=== PATIENT | female | born 1975 | race Caucasian/White ===

== ENCOUNTER → 2017-07-13 | Outpatient (CLI) | payer OTHER ==
[~2017-07-13] MED LIST: LEVO125T4 PO; PRENTAB26 PO; ZVRUNK
== END | disposition home or self-care (01) ==
LOC: C.LABSPEC 17:49
PROVIDERS: ATTEND Physician Assistant
DX: N76.2 Acute vulvitis (principal)

== ENCOUNTER → 2017-08-05 | Outpatient (CLI) | payer OTHER | END | disposition home or self-care (01) | LOC: C.LABBFT 08:00 | PROVIDERS: ATTEND Internal Medicine Endocrinology, Diabetes & Metabolism | DX: E03.9 Hypothyroidism, unspecified (principal) ==

== ENCOUNTER → 2017-08-08 | Outpatient (CLI) | payer OTHER | END | disposition home or self-care (01) | LOC: C.PAPS 10:34 | PROVIDERS: ATTEND Physician Assistant | DX: Z12.4 Encounter for screening for malignant neoplasm of cervix (principal) ==

== ENCOUNTER → 2017-10-07 | Outpatient (CLI) | payer OTHER ==
[~2017-10-07] MED LIST changes: -LEVO125T4 PO; +LEVO125T5 PO
[2017-10-07 12:40] LABS: THYROID STIMULATING HORMONE 0.821 uIu/ml (0.300-4.500)
== END | disposition home or self-care (01) ==
LOC: C.LABBFT 08:46
PROVIDERS: ATTEND Internal Medicine Endocrinology, Diabetes & Metabolism
DX: E03.9 Hypothyroidism, unspecified (principal)

== ENCOUNTER → 2018-02-10 | Outpatient (CLI) | payer OTHER, BC | END | disposition home or self-care (01) | LOC: C.LABBFT 08:32 | PROVIDERS: ATTEND Internal Medicine Endocrinology, Diabetes & Metabolism | DX: E03.9 Hypothyroidism, unspecified (principal) ==

== ENCOUNTER 2023-07-29 09:09 | Observation (INO) ==
--- NOTE | 2023-06-20 16:21 | PAT Medication Instructions ---
Medication Instructions Date of Service June 20, 2023 Home Medications Medication Instructions Recorded albuterol sulfate 90 mcg/actuation 2 puff inhalation QID PRN 04/08/21 aerosol inhaler (ProAir HFA) shortness of breath #8.5 grams citalopram 40 mg tablet 40 mg PO QAM 90 days #90 tabs 12/23/22 bupropion HCl 150 mg 24 hr tablet, 150 mg PO QAM #90 tabs 04/20/23 extended release (Wellbutrin XL) albuterol sulfate 90 mcg/actuation aerosol inhaler (ProAir HFA) 2 puff inhalation QID PRN citalopram 40 mg tablet 40 mg PO QAM levonorgestrel 21 mcg/24 hours (8 yrs) 52 mg intrauterine device (Mirena) 1 device intrauterine UD bupropion HCl 150 mg 24 hr tablet, extended release (Wellbutrin XL) 150 mg PO QAM levothyroxine 150 mcg tablet 150 mcg PO QAM valacyclovir 500 mg tablet (Valtrex) 500 mg PO BID PRN Continue as directed levonorgestrel 21 mcg/24 hours (8 yrs) 52 mg intrauterine device (Mirena) 1 device intrauterine UD valacyclovir 500 mg tablet (Valtrex) 500 mg PO BID PRN(if needed) Take morning of surgery With a small sip of water, OTHERWISE NOTHING TO EAT OR DRINK AFTER MIDNIGHT: albuterol sulfate 90 mcg/actuation aerosol inhaler (ProAir HFA) 2 puff inhalation QID PRN(use if needed; please bring with you to hospital day of surgery if possible) citalopram 40 mg tablet 40 mg PO QAM bupropion HCl 150 mg 24 hr tablet, extended release (Wellbutrin XL) 150 mg PO QAM levothyroxine 150 mcg tablet 150 mcg PO QAM Take evening before surgery albuterol sulfate 90 mcg/actuation aerosol inhaler (ProAir HFA) 2 puff inhalation QID PRN(if needed) Other Notes If you have any questions please call us at [phone] or [phone] or [phone] or [phone]
--- NOTE | 2023-07-04 09:05 | Anesthesiology Consultation ---
Date of Service July 04, 2023 Assessment & Plan (1) Encounter for pre-operative examination: - COVID screening: Per assessment on 07/04: No known COVID-19 positive contacts or current COVID-19 related symptoms. No recent Covid positive test result. - Outpatient joint assessment: Pt currently scheduled for inpatient pathway. If surgeon requests review for outpatient joint pathway, patient is an acceptable candidate for outpatient joint program from anesthesia standpoint pending surgeon's office assessment that patient is motivated, has good support and completes Same Day Joint Program preop requirements. - S/P Left knee arthroscopy (05/20/22): LMA#5 igel with good seal, easy[place] [facility] [place] Review Chart Review: Acceptable Risk for Surgery and Patient seen in Pre Admission Testing Teaching & Discussion Pre-Anesthesia Teaching/Discussion Notes: Instructed NPO after midnight before surgery,except medications with 15 cc of water. Medication instructions provided according to the PAT guidelines. History Surgery Operation Date: 07/29/23 13:05 Proposed Procedures p Left Knee Arthroplasty Uni-Compartmental versus Total Knee - Lenard Ross DO Height/Weight Height: 5 ft 1 in Weight: 90.6 kg Allergies Allergy/AdvReac Type Severity Reaction Status Date / Time No Known Allergies Allergy Unknown Verified 06/08/23 14:23 Medications Home Medications Medication Instructions Recorded Confirmed Last Taken albuterol sulfate 90 mcg/actuation 2 puff inhalation QID PRN 04/08/21 06/08/23 Unknown aerosol inhaler (ProAir HFA) shortness of breath #8.5 grams citalopram 40 mg tablet 40 mg PO QAM 90 days #90 tabs 12/23/22 06/08/23 Unknown levonorgestrel 21 mcg/24 hours (8 1 device intrauterine UD 04/08/23 06/08/23 Unknown yrs) 52 mg intrauterine device (Mirena) bupropion HCl 150 mg 24 hr tablet, 150 mg PO QAM #90 tabs 04/20/23 06/08/23 Unknown extended release (Wellbutrin XL) valacyclovir 500 mg tablet 500 mg PO BID PRN ud 06/08/23 06/08/23 Unknown (Valtrex) levothyroxine 150 mcg tablet 150 mcg PO DAILY #90 tabs 06/28/23 Unknown Past Medical History Medical History Asthma Stable Depression History of COVID-2020- fatigue, body aches, nausea; resolved Hypothyroidism Obesity Exercise / Class Metabolic Activity II 4-5 Yardwork/Stairs/Walk up hill (one FS (no CP, no SOB)) Past Family History Family History Mother Ovarian cancer Denies family history of Colon cancer Breast cancer Past Surgical History Surgical History delivery delivered H/O oral surgery History of arthroscopy of knee Left knee arthroscopy (05/20/22): LMA#5 igel with good seal, easy, [place] [facility] [place] Tubal ligation status 2011 Past Anesthesia History No Hx of Anesthesia Complications and No Family Hx of Anesthesia Complications History of PONV No Hx of PONV and No Hx of Motion Sickness Social History Smoking Status: Current every day smoker tobacco type: cigarettes Smoking cigarettes per day: 5 cigs/day Do You Dip or Chew Tobacco: No Hx Alcohol Use: Yes Alcohol type: hard liquor alcohol intake frequency: holidays/special occasions only Hx Substance Use: No substance use type: does not use Review of Systems Patient denies chest pain, shortness of breath, dyspnea on exertion, fever, chills, cough, wheezing, palpitations. Physical Exam Vital Signs VITALS BP 130/85 P 56 TEMP 98.2 SP02 99%RA RESP 16 PHYSICAL Full cervical extension range of motion. Full TMJ range of motion. TMD 4 finger breaths Mallampati Score 3 Dentition: missing sides Lungs: clear throughout to auscultation Cardiac: regular rate and rhythm, no murmurs noted Spine: normal Carotid arteries: negative bruit Extremities: no LE edema Lab Results Anesthesia Preop Results Results Anesthesia Widget: WBC 7.53 K/ul (4.8-10.8) 07/04/23 Hgb 13.1 g/dl (12.0-16.0) 07/04/23 Hct 38.6 % (37.0-47.0) 07/04/23 Plt 187 K/uL (130-400) 07/04/23 Na 137 mmol/L (136-145) 07/04/23 K 3.9 mmol/L (3.5-5.1) 07/04/23 Cl 106 mmol/L (98-107) 07/04/23 CO2 26 mmol/L (21-32) 07/04/23 BUN 8 mg/dl (6-23) 07/04/23 Creat 0.76 mg/dl (0.6-1.2) 07/04/23 Glucose Level 75 mg/dl (70-99(Fasting)) 07/04/23 PT 10.4 Seconds (9.0-12.0) 07/04/23 PTT 26.4 Seconds (21.0-31.0) 07/04/23 INR 0.9 (0.9-1.1) 07/04/23 Blood Type B Positive 07/04/23 Antibody Screen NEGATIVE 07/04/23 Testing Electrocardiogram Date: 07/04/23 SB at 52bpm. Otherwise normal ECG. Chest X-Ray Date: 07/04/23 FINDINGS: No lines and tubes are seen. The cardiomediastinal silhouette is normal. The lungs are clear. No evidence of pleural effusion or pneumothorax. IMPRESSION: No acute chest disease.
--- NOTE | 2023-07-29 06:29 | History & Physical Report ---
Date of Service July 29, 2023 Assessment & Plan (1) Osteoarthritis of left knee: We will proceed with a left partial knee replacement surgery. Postoperatively she will be started on aspirin for DVT prophylaxis and kept overnight in the hospital for postop medical management. She plans to use [facility] upon discharge. History of Present Illness Chief Complaint: Osteoarthritis of the left knee. 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 She has been dealing with chronic left knee pain. I did a left knee arthroscopy on her a year ago. It showed grade 4 medial compartment arthritis. Unfortunately, she is still dealing with knee pain. We have tried multiple injections. The injections are no longer helping. After failing conservative treatment, she has elected proceed with a left partial knee replacement surgery. Allergies Allergy/AdvReac Type Severity Reaction Status Date / Time No Known Allergies Allergy Unknown Verified 06/08/23 14:23 Home Medications Medication Instructions Recorded Confirmed Type albuterol sulfate 90 mcg/actuation 2 puff inhalation QID PRN 04/08/21 06/08/23 Rx aerosol inhaler (ProAir HFA) shortness of breath #8.5 grams citalopram 40 mg tablet 40 mg PO QAM 90 days #90 tabs 12/23/22 06/08/23 Rx levonorgestrel 21 mcg/24 hours (8 1 device intrauterine UD 04/08/23 06/08/23 History yrs) 52 mg intrauterine device (Mirena) bupropion HCl 150 mg 24 hr tablet, 150 mg PO QAM #90 tabs 04/20/23 06/08/23 Rx extended release (Wellbutrin XL) valacyclovir 500 mg tablet 500 mg PO BID PRN ud 06/08/23 06/08/23 History (Valtrex) levothyroxine 150 mcg tablet 150 mcg PO DAILY #90 tabs 06/28/23 Rx Past Med/Surg History Medical History Asthma Stable Depression History of COVID-2020- fatigue, body aches, nausea; resolved Hypothyroidism Obesity Surgical History delivery delivered H/O oral surgery History of arthroscopy of knee Left knee arthroscopy (05/20/22): LMA#5 igel with good seal, easy, [place] [facility] [place] Tubal ligation status 2012 Family History Mother Ovarian cancer Denies family history of Colon cancer Breast cancer Social History Smoking Status: Current every day smoker Cigarettes Per Day: 5 cigs/day; Second Hand Exposure: No; Do You Dip or Chew Tobacco: No; Tobacco Cessation Education Requested by Patient: No Hx Alcohol Use: Yes Alcohol type: hard liquor Hx Substance Use: No Preferred Language: Martiniquais Communication Ability: Effective Hearing Ability: Normal General Worker Required: No Beliefs That Will Affect Care: None marital status: Current Living Situation: Spouse current occupational status: employed current occupation: Homemaker Feels Safe at Home: Yes Safety Concerns: Feels Safe At This Time Diet: regular caffeine: Yes Dental Care, Regularly: Yes Physical Activity Frequency: Daily Seatbelt Use: always Sunscreen Use: Yes Assistive Devices: None Review of Systems All systems reviewed & are unremarkable except as noted in HPI & below. Physical Exam On physical examination of left knee, she has pain over the distal medial femoral condyle and over the medial joint line.. Constitutional WD/WN, vitals as above Eyes PERRL, conjunctivae normal, anicteric sclerae ENMT external ear and nose normal, oropharynx normal Neck trachea midline, no thyromegaly Respiratory normal respiratory effort, lungs clear to auscultation Cardiovascular RRR, no murmur, no edema Gastrointestinal (Abdomen) normal bowel sounds, soft, nontender, no hepatosplenomegaly Skin no rashes, warm and dry Psychiatric A+Ox3, euthymic affect Results & Data Results & Data Laboratory Results . Diagnostic Findings X-rays of the left knee do show medial compartment arthritis with joint space narrowing, and mild osteophyte formation. Arthroscopic images of the left knee show advanced medial compartment arthritis.. PG Care Time/CCT Total # of Minutes Spent Total Time Spent with Patient: Total time spent is greater than 50% in coordination of care (as documented) at patient's floor/unit and/or counseling patient: Coding Level of Care Code None Diagnoses Osteoarthritis of left knee M17.12
[~2023-07-29 09:09] MED LIST changes: +ACETAMINOPHEN 500 MG TAB PO SCH; +BUPIVACAINE 0.25% PF 30 ML VIAL ONE; +BUPIVACAINE 0.5 % 5 MG/1 ML PF 10ML VIAL ONE; +DEXAMETHASONE SOD INJ 4 MG/ML VIAL ONE; +EPINEPHrine INJ 1 MG/ML AMP ONE; +FAMOTIDINE 20 MG TAB PO SCH; +GABAPENTIN 900 MG DOSE PO SCH; -LEVO125T5 PO; +LR 500ML BOLUS, THEN 15ML/HR IV SCH; +LR 60ML/HR IV SCH; +ORTHO JOINT MIX INFIL SCH; -PRENTAB26 PO; +TRANEXAMIC ACID 1,000 MG **IV Intra-op IV SCH; +TRANEXAMIC ACID 1,000 MG **IV Pre-op IV SCH; -ZVRUNK; +ceFAZolin 2000MG 2,000 MG/15 ML SYR IV SCH; +dexAMETHasone 4 MG TAB PO SCH
[2023-07-29] MEDS ORDERED: fentaNYL citrate PF 100 MCG/2 ML VIAL ONE (09:55)
[2023-07-29] MEDS ORDERED: MIDAZOLAM HCL 1 MG/ML 2ML VIAL ONE (09:55)
[2023-07-29] MEDS ORDERED: ONDANSETRON INJ 2 MG/ML 2 ML VIAL ONE (09:55)
[2023-07-29] MEDS ORDERED: PROPOFOL IV EMULSION 10 MG/ML 20 ML VIAL IV ONE (09:55)
[2023-07-29] MEDS ORDERED: ORTHO JOINT ANESTHETIC ONE (11:00)
[2023-07-29] MEDS ORDERED: ONDANSETRON INJ 2 MG/ML 2 ML VIAL IV PRN ×2 (11:44→14:12)
[2023-07-29] MEDS ORDERED: fentaNYL citrate PF 100 MCG/2 ML VIAL IV PRN (11:44)
[2023-07-29] MEDS ORDERED: ATROPINE SULFATE 0.1 MG/ML 10ML SYR IV PRN (11:44)
[2023-07-29] MEDS ORDERED: ePHEDrine sulfate 50 MG/ML AMP IV PRN (11:44)
[2023-07-29] MEDS ORDERED: KETAMINE 50 MG/5 ML SYRINGE ONE (12:31)
--- NOTE | 2023-07-29 13:03 | Operative Report ---
PG Post Operative Report Pre & Post Diagnosis Operation Date: 07/29/23 11:00 Pre-Op Diagnosis: Osteoarthritis Knee Left Post-Op Diagnosis: Osteoarthritis Knee Left I identified the patient and participated in the time-out.: Yes Procedure Operation Date: 07/29/23 11:00 Actual Procedures p Left Knee Arthroplasty Unicompartmental Knee Replacement(Left) - Lenard Ross DO Surgeon Lenard Ross DO Outdoor Adventure Leader Lenard Segura PA-C Estimated Blood Loss 30 Findings Consistent with Post-Op Diagnosis Specimens Left femoral tibial bone Description of Procedure Implants used: I used a Khushboo persona unicompartmental knee system with a size 4 femur, a size D tibia, and an 8 mm polyethylene spacer. On July 29, 2023 Kelly arrived at [facility] for the above procedure. She was seen in the preoperative holding area and the operative extremity was then fine signed. She is given a preoperative antibiotic and a spinal anesthetic. She was taken back the operating laid on the table in supine position. She was given basic sedation. The left knee was prepped and draped in sterile fashion. A timeout was done. The patient and the operative extremity was properly identified. A midline incision was made just medial to the patella. Dissection was taken down to the extensor mechanism. A small mid vastus arthrotomy was used. A small portion of the fat pad was removed. The medial retinaculum was released. The medial meniscus was removed. The knee was then flexed. There was arthritis in the medial compartment. The ACL was intact. There was no arthritis in the patellofemoral joint or in the lateral compartment. A decision was made to do a partial knee replacement. 6 mm was resected off the tibial plateau. The knee was then brought into full extension and a distal femoral cutting guide was placed. The distal femur was then resected. The knee was then flexed. The distal femur measured to be a size 4. A cutting block was placed. Posterior and chamfer cuts were made. 2 peg holes were drilled. The tibia was then measured to be a size D. A tibial tray was placed and 2 pegs were drilled. A polyethylene spacer was placed and the knee was brought through full range of motion and felt to be stable. All trials were then removed. The final components were then cemented in the place. Once cement had hardened atrial size 8 polyethylene insert was snapped into place. The knee was brought through a full range of motion and felt to be stable. The wound was then irrigated. Surrounding soft tissues were injected with an orthopedic pain control cocktail. The extensor mechanism was closed with #1 Vicryl suture. Skin was closed with 2-0 Vicryl, 3 oh VLock, and lamont. She was placed in a soft compressive dressing. She was then taken to the postanesthesia care unit in stable condition. She tolerated the procedure well. Lenard Segura PA-C, was present for the entire procedure. He was critical for patient positioning, prepping, draping, retraction exposure, wound closure and application of sterile dressing. I attest to the content of the Intraoperative Record and any orders documented therein. Any exceptions are noted below.
--- NOTE | 2023-07-29 13:31 | Anesthesiology Progress Note ---
Date of Service July 29, 2023 Anesthesia Post Procedure Vital Signs Vital Signs: Temp Pulse Resp BP Pulse Ox O2 Del Method 07/29/23 09:59 36.4 C L 55 L 18 132/84 99 Room Air Pain Intensity Left Knee: Pain Intensity: 8 Transfer of Care Handoff Completed per policy Notes Mental Status: alert / awake / arousable Patient Amnestic to Procedure: Yes Nausea / Vomiting: adequately controlled Pain: adequately controlled Airway Patency, RR, SpO2: stable & adequate BP & HR: stable & adequate Hydration State: stable & adequate Neuraxial Anesthesia: was administered and sensory block is resolving Anesthetic Complications: no major complications apparent
--- NOTE | 2023-07-29 13:59 | XRay Report ---
XR knee LT 1 or 2V routine CLINICAL HISTORY: Surgical Post Op TECHNIQUE: 2 views of the left knee were obtained. Comparison: Comparison is made to left leg radiograph 06/11/2021 FINDINGS: Patient is status post partial knee arthroplasty with expected postsurgical changes including soft ti ssue swelling and subcutaneous emphysema. No periarticular lucency or hardware fracture is seen. IMPRESSION: Expected postoperative appearance status post placement of partial knee arthroplasty. ACT 112: Negative or not required by law. Electronically signed by: Edward Hurd M.D. 07/29/2023 1:58 PM
[2023-07-29] MEDS ORDERED: bisacodyL 10 MG SUPP PR PRN (14:12)
[2023-07-29] MEDS ORDERED: [UNRECOGNIZED DRUG - OTHER] IU SCH (14:12)
[2023-07-29] MEDS ORDERED: NALOXONE HCL 0.4 MG/1 ML VIAL/CARP IV PRN (14:12)
[2023-07-29] MEDS ORDERED: ALBUTEROL HFA 8 GM INHALER INH PRN (14:12)
[2023-07-29] MEDS ORDERED: HYDROmorphone INJ 0.5 MG/0.5 ML SYR IV PRN (14:12)
[2023-07-29] MEDS ORDERED: MAGNESIUM HYDROXIDE SUSP 30 ML UDC PO PRN (14:12)
[2023-07-29] MEDS ORDERED: LEVONORGESTREL IU SCH (14:12)
[2023-07-29] MEDS ORDERED: valACYclovir HCL 500 MG TABLET PO PRN (14:12)
[2023-07-29] MEDS ORDERED: METOCLOPRAMIDE HCL INJ 5 MG/ML 2 ML VIAL IV PRN (14:12)
[2023-07-29] MEDS: SODIUM CHLORIDE 0.9% 1,000 ML IV SCH (14:36)
[2023-07-29] MEDS: KETOROLAC 30 MG/ML VIAL IV SCH ×2 (14:36→20:00)
[2023-07-29] MEDS: ACETAMINOPHEN 500 MG TAB PO SCH ×2 (14:36→22:01)
[2023-07-29] MEDS: DOCUSATE SODIUM 100 MG CAP PO SCH (19:59)
[2023-07-29] MEDS: ASPIRIN 81 MG ECTAB PO SCH (19:59)
[2023-07-29] MEDS: ceFAZolin 2000MG 2,000 MG/15 ML SYR IV SCH (20:07)
[2023-07-29] MEDS ORDERED: SENNA 8.6 MG TAB PO SCH (21:00)
[2023-07-30] MEDS: SODIUM CHLORIDE 0.9% 1,000 ML IV SCH (00:15)
[2023-07-30] MEDS: KETOROLAC 30 MG/ML VIAL IV SCH ×2 (03:16→08:11)
[2023-07-30] MEDS: ceFAZolin 2000MG 2,000 MG/15 ML SYR IV SCH (03:16)
[2023-07-30] MEDS: ACETAMINOPHEN 500 MG TAB PO SCH (05:45)
[2023-07-30] MEDS ORDERED: dexAMETHasone 4 MG TAB PO SCH (08:00)
[2023-07-30] MEDS: oxyCODONE HCL IR 5 MG TAB (IMMEDIATE RELEASE) PO PRN ×2 (08:08→11:55)
[2023-07-30] MEDS: DOCUSATE SODIUM 100 MG CAP PO SCH (08:11)
[2023-07-30] MEDS: ASPIRIN 81 MG ECTAB PO SCH (08:11)
--- NOTE | 2023-07-30 08:42 | Orthopedic Progress Note ---
Date of Service July 30, 2023 Assessment & Plan (1) Status post left partial knee replacement: Overall she is doing very well. She is not having much pain in the left knee. She will be seen by physical therapy today for ambulation and range of motion exercises. She is on aspirin for DVT prophylaxis. She can be discharged home later today. She will follow-up orthopedics in 2 weeks. Willem Mendoza was seen and examined at bedside this morning. Overall she is doing very well. She is not having much pain in the left knee. She has been up and ambulating to the bathroom. She has no complaints.. Review of Systems All systems reviewed & are unremarkable except as noted in HPI & below. Physical Exam On physical examination of left knee, the dressing is clean and dry. Her leg is out full extension. She has active dorsiflexion plantarflexion of her left ankle.. Results & Data Results & Data Laboratory Results . Diagnostic Findings Postoperative x-rays of the left knee show the prosthesis to be in anatomic alignment without any evidence of fracture, dislocation, or loosening.. PG Care Time/CCT Total # of Minutes Spent Total Time Spent with Patient: Total time spent is greater than 50% in coordination of care (as documented) at patient's floor/unit and/or counseling patient: Coding Level of Care Code 20313 Post Operative Follow-Up Diagnoses Status post left partial knee replacement Z96.652
--- NOTE | 2023-07-30 08:43 | Discharge Summary ---
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 I did a left knee arthroscopy on her a year ago. It showed grade 4 medial compartment arthritis. Unfortunately, she is still dealing with knee pain. We have tried multiple injections. The injections are no longer helping. After failing conservative treatment, she has elected proceed with a left partial knee replacement surgery. Admission Exam (Per Admitting) On physical examination of left knee, she has pain over the distal medial femoral condyle and over the medial joint line.. Principal Diagnosis Same as "Discharge Diagnosis" noted below under Discharge Instructions. Discharge Exam On physical examination of left knee, the dressing is clean and dry. Her leg is out full extension. She has active dorsiflexion plantarflexion of her left ankle.. Discharge Data Procedures Performed Operation Date: 07/29/23 11:00 Actual Procedures p Left Knee Arthroplasty Unicompartmental Knee Replacement(Left) - Lenard Ross DO Ordered Studies 07/29/23 05:00 US - OR guided needle placemen Routine Hospital Course (1) Status post left partial knee replacement: On July 29, 2023 May arrived at [facility] and underwent a left knee replacement without complication. She had a spinal anesthetic. Postoperatively she was started on aspirin for DVT prophylaxis and transferred to the general orthopedic floors. Her hospital course was uneventful. On postop day #1, her vital signs were stable and her pain was well controlled. She was able to participate well with physical therapy doing ambulation and range of motion exercises. She was then discharged home. She will follow-up orthopedics in 2 weeks. PG Care Time/CCT Total # of Minutes Spent Total Time Spent with Patient: Total time spent is greater than 50% in coordination of care (as documented) at patient's floor/unit and/or counseling patient: Discharge Plan Discharge Items Patient Disposition: Home - Home Health Services Reason For Visit: Osteoarthritis Knee Left Discharge Diagnosis: Left knee replacement Activity: Per Instructions section Non-emergency contact: Surgeon Call non-emergency contact if: your wound has increased redness and your wound has increased drainage Follow-up/Referrals: Shayy Cabrera MD [Primary Care Provider] - Diet: Regular Addtl Attending Provider Instructions: Activity and Therapy Recommendations: * If you are using [facility] then therapy will be provided at your home until they feel you have accomplished all of your goals. * If you are using [facility] then Physical Therapy will be provided until they feel you are ready to start Outpatient Physical Therapy. * If you are not using home therapy then Outpatient Physical Therapy should start about 3-5 days from your day of surgery. Therapy will last about 6-10 weeks * It is important not to put a pillow under your knee when you are relaxing or sleeping. It is just as important to make sure you are getting your knee perfectly straight as it is to regain your knee bend. * You were shown a series of exercises in the hospital. Do these exercises three times each day including the exercises you were shown in physical therapy. * Get up and walk several times each day. For the first four weeks, try not to stand or walk for more than one hour at a time. If you do stand or walk for more than one hour, you will not hurt anything, but your leg will likely swell. * As you feel comfortable, you may change from the walker or crutches to a cane and then to independent walking. Medications: * Narcotic You will likely be sent home from the hospital with a prescription for the narcotic pain medication that worked best throughout your stay. * Aspirin Most patients will be required to take Aspirin 81mg twice a day for 6 weeks after surgery. This is obtained [id number] and a prescription is not necessary. * Other medications may be prescribed for specific circumstances. If you have any questions, please call the office at . * Resume previous home medications unless otherwise instructed TEDs/Elastic Stockings: The white elastic stockings help limit swelling and prevent blood clots from forming in your legs.~ The more you wear them, the more they work. Wear them for six weeks. Dressing Care: The dressing can be changed after physical therapy on postop day #1. Daily dry dressing changes for a few days, especially if the incision is still draining some. If the incision is not draining then you may leave the lamont open to air. If there is a little bit of drainage or if the lamont are getting stuck on your clothing then cover the incision with a dry dressing. The lamont will be removed at your 2 week follow-up appointment. Showering: You may shower 5 days from the day of surgery as long as the incision is no longer draining. You may shower with the lamont exposed. Let soapy water run over the lamont and pat them dry. Do not scrub or soak the incision. Things To Watch For: * Drainage from the incision site that occurs more than one week after your surgery. * Increased redness at the incision site. * Fever above 102 degrees Fahrenheit. * Unusual chest pain or shortness of breath. * Call [facility] at with any of the above problems Follow-Up Visit: Follow-up with Dr. Ross's PA (Lenard Segura) 2-3 weeks after your day of surgery. He will remove your lamont and answer any questions. If you have any additional questions or concerns, Dr Ross is usually in the office at the same time and will be available An appointment was probably scheduled when you signed-up for surgery in the office. If you have any questions call Office Instructions: More detailed instructions as well as Frequently Asked Questions were provided in a folder by our office when you signed-up for surgery. Please review these instructions when you get home. If you have any further questions or concerns, please feel free to call the office at [phone] Pending Studies at Discharge: No Stand-Alone Forms: [facility] Medications and DC Order Prescriptions: New aspirin 81 mg Tablet,Delayed Release (Dr/Ec) 81 mg PO BID 42 Days Qty: 84 0RF oxycodone 5 mg Tablet 5 mg PO Q4H PRN (Reason: pain) Qty: 30 0RF Continued citalopram 40 mg tablet 40 mg PO QAM 90 Days Qty: 90 2RF bupropion HCl [Wellbutrin XL] 150 mg tablet extended release 24 hr 150 mg PO QAM Qty: 90 2RF levothyroxine 150 mcg tablet 150 mcg PO DAILY Qty: 90 4RF albuterol sulfate [ProAir HFA] 90 mcg/actuation HFA aerosol inhaler 2 puff inhalation QID PRN (Reason: shortness of breath) Qty: 8.5 2RF Mirena 21 mcg/24 hours (8 yrs) 52 mg intrauterine device 1 device intrauterine UD valacyclovir [Valtrex] 500 mg tablet 500 mg PO BID PRN (Reason: ud) Admission Data Admit Date/Time: 07/29/23 14:09 Attending Provider: Lenard Ross Admit Provider: Lenard Ross Primary Care Provider: Shayy Cabrera
[2023-07-30] MEDS ORDERED: CITALOPRAM 40 MG TAB PO SCH (09:00)
[2023-07-30] MEDS ORDERED: LEVOTHYROXINE SODIUM 150 MCG TABLET PO SCH (09:00)
[2023-07-30] MEDS ORDERED: MULTIVITAMIN TAB PO SCH (09:00)
[2023-07-30] MEDS ORDERED: buPROPion XL 150 MG TABCR PO SCH (09:00)
== END 2023-07-30 13:23 | disposition home health service (06) ==
LOC: ASU 09:09 → 3E 09:09

== ENCOUNTER 2024-06-27 18:53 | Observation (INO) ==
[2024-06-27] MEDS: KETOROLAC TROMETHAMINE 15 MG/ML VIAL IV STA (19:23)
[2024-06-27] MEDS: SODIUM CHLORIDE 0.9% 1,000 ML IV STA (19:23)
[2024-06-27] MEDS: ONDANSETRON INJ 2 MG/ML 2 ML VIAL IV STA (19:23)
[2024-06-27] MEDS: MoRPHine SULFATE 4 MG/ML 1 ML CARP\\VIAL IV STA (19:24)
--- NOTE | 2024-06-27 19:33 | Emergency Department Note ---
Impression & Plan RUQ abdominal pain, Acute cholecystitis, UTI (urinary tract infection), Elevated liver enzymes ED Provider Note NAME: STACI PRESCOTT AGE: 49 SEX: F : 1975 ARRIVES VIA: Walk-In INFORMANT: [Patient] ED PROVIDER(S): [Marty Shipley MD] CHIEF COMPLAINT: Chest and rib pain. HISTORY OF PRESENT ILLNESS: The patient is a 49-year-old female who presents to the ER with at least 24 hours of right upper quadrant abdominal pain. The pain seems to be under her ribs and goes to her right back. The pain is constant and sometimes worse with movement. The pain does not worsen with eating. There has been no nausea or vomiting, no urinary complaints, no respiratory complaints. She is not short of breath. No cough or congestion. The patient denies any fall or trauma. The patient has tried reflux meds without relief. PMHx/PSHx/Social Hx: See Below PHYSICAL EXAM: GENERAL: Patient is in no acute distress. HEENT: No acute trauma, normocephalic atraumatic, mucous membranes moist, no nasal congestion. NECK: No stridor, no adenopathy, no meningismus, trachea is midline. LUNGS: Clear to auscultation bilaterally, no wheeze, no rhonchi, breath sounds equal. Chest: Nontender ribs/chest wall. HEART: Without murmurs gallops or rubs, regular rate and rhythm. ABDOMEN: Soft, moderately tender in the right upper quadrant. No abdominal distention. EXTREMITIES: No cyanosis, full range of motion of all the joints without pain or difficulty. NEUROLOGIC: Oriented x 3, no acute motor or sensory deficits, no focal weakness. SKIN: No jaundice, no diaphoresis. Back: Nontender flanks. No rash. DIFFERENTIAL DIAGNOSIS: Acute cholecystitis, biliary colic, pancreatitis, PE, pneumonia, reflux, ulcer, among others. EMERGENCY DEPARTMENT PROCEDURES: MEDICAL DECISION MAKING: There is no leukocytosis or concerning anemia. There is a normal platelet count. No renal failure. No significant electrolyte abnormality. There were some subtle liver enzyme elevations, the bilirubin however, was normal. No evidence for pancreatitis. Patient was not by her testing. Cardiac enzyme testing x 1 is not consistent with acute cardiac injury. Urinalysis does suggest infection. Chest x-ray does not show pneumonia or free air. Gallbladder ultrasound shows acute cholecystitis with a very mildly dilated common bile duct. On exam, the patient was quite tender in the right upper quadrant. She was not febrile or toxic. Patient was given IV saline, 1 L. She was given IV Zosyn as antibiotic coverage. She received IV Zofran for nausea, IV morphine for pain. She was given IV Toradol for pain. The patient appears to have a UTI as well as acute cholecystitis. I did speak with general surgery on-call. The patient is being hospitalized on the medical service, she will likely have a gallbladder operation tomorrow. The patient is currently feeling improved. She is resting comfortably. She understands the need for hospitalization. I did speak with case management, the on-call hospitalist was consulted. Prior/Outside records/notes reviewed: None Imaging/x-ray results per my interpretation: Chest x-ray does not show mediastinal widening, or free air or pneumonia. Chronic Medical/Social conditions affecting care: Care/Management discussed with: General Surgery on-call-Dr. Bekah Vila. Case management and the on-call hospitalist. Level of care consideration(s): After review of the information above and other included data: --I believe the patient requires escalation of care to admission DISPOSITION: Admission Past Med/Surg History Problem List (Updated 06/28/24 @ 00:46 by Marty Shipley MD) Elevated liver enzymes (Acute) UTI (urinary tract infection) (Acute) Acute cholecystitis (Acute) RUQ abdominal pain (Acute) Acute cholecystitis Anxiety Colon cancer screening Epicondylitis, lateral, left Dyslipidemia Varicose veins of both lower extremities S/P left knee arthroscopy Morbid obesity Medial meniscus tear Tobacco use Status post left partial knee replacement (~07/2023) Hypothyroidism (Chronic) Asthma (Chronic) Stable Depression Medical History Obesity BMI 37.8 History of COVID-19 2020- fatigue, body aches, nausea; resolved Surgical History Status post left partial knee replacement (~07/2023) History of arthroscopy of knee Left knee arthroscopy (05/20/22): LMA#5 igel with good seal, easy[place] [facility] [place]al ligation status 2011 H/O oral surgery delivery delivered Family History Mother Ovarian cancer Other No family history of adverse response to anesthesia Denies family history of Colon cancer Breast cancer Social History Smoking Status: Current every day smoker Tobacco Type: Cigarettes Cigarettes Per Day: 4; Second Hand Exposure: No; Do You Dip or Chew Tobacco: No; Tobacco Cessation Education Requested by Patient: Yes Hx Alcohol Use: Yes Alcohol type: hard liquor Hx Substance Use: No Preferred Language: Israeli Communication Ability: Effective Hearing Ability: Normal Municipal Court Magistrate Required: No Beliefs That Will Affect Care: None marital status: Current Living Situation: Spouse current occupational status: employed current occupation: Homemaker Other Information That Helps Us Care for You: No Feels Safe at Home: Yes Safety Concerns: Feels Safe At This Time Childhood Exposure to Second-Hand Smoke: Yes Diet: regular caffeine: Yes Dental Care, Regularly: Yes Physical Activity Frequency: Daily Seatbelt Use: always Sunscreen Use: Yes Assistive Devices: Glasses Allergies Allergies Allergy/AdvReac Type Severity Reaction Status Date / Time No Known Allergies Allergy Unknown Verified 06/27/24 20:10 Home Meds Home Medications Medication Instructions Recorded Confirmed levonorgestrel 21 mcg/24 hr (up to 1 device intrauterine CONTINOUS 04/08/23 06/27/24 8 years) 52 mg intrauterine device (Mirena) valacyclovir 500 mg tablet 500 mg PO BID PRN ud 06/08/23 06/27/24 (Valtrex) levothyroxine 150 mcg tablet 150 mcg PO QAM 01/05/24 06/27/24 albuterol sulfate 90 mcg/actuation 2 puff inhalation QID PRN 06/27/24 06/27/24 aerosol inhaler Shortness Of Breath Or Wheezing Previous Rx's Medication Instructions Recorded bupropion HCl 150 mg 24 hr tablet, 150 mg PO QAM #90 tabs 04/20/23 extended release (Wellbutrin XL) citalopram 40 mg tablet 40 mg PO QAM 90 days #90 tabs 04/19/24 Results & Data (ED) Vital Signs Vital Signs - 24 hr 06/27/24 18:56 06/27/24 19:25 06/27/24 20:16 Temperature 36.3 C L Temperature Source Temporal Artery Scan Pulse Rate 77 64 Respiratory Rate 18 Respiratory Effort / Characteristics Non-Labored Spontaneous Respiratory Depth Normal Respiratory Pattern Regular Blood Pressure 156/99 H Blood Pressure Mean 118 Blood Pressure Position Sitting Pulse Oximetry 99 99 Oxygen Delivery Method Room Air Room Air Sepsis Recent Fever Within 48 Hours No Sepsis New/Unexplained Change in Mental Status N/A Sepsis Action Taken by Nursing No Action Required Home Medications Current Medication List: was personally reviewed by me Laboratory Data Attestation: I reviewed the patient's lab results. 06/27/24 19:22 06/27/24 19:22 Lab Results 06/27/24 06/27/24 Range/Units 19:22 20:43 WBC 10.38 (4.8-10.8) K/ul RBC 4.54 (4.20-5.40) M/uL Hgb 13.5 (12.0-16.0) g/dl Hct 39.7 (37.0-47.0) % MCV 87.4 (80.0-100.0) fL MCH 29.7 (25.0-34.0) pg MCHC 34.0 (32.0-36.0) g/dL RDW Std Deviation 41.3 (36.4-46.3) fL RDW Coeff of April 12.7 (11.5-14.5) % Plt Count 238 (130-400) K/uL MPV 10.6 (9.4-12.4) fL Immature Gran % (Auto) 0.3 % Neut % (Auto) 71.0 % Lymph % (Auto) 17.1 % [place] % (Auto) 7.1 % Eos % (Auto) 4.0 % Baso % (Auto) 0.5 % Neut # (Auto) 7.37 H (1.40-6.50) K/uL Lymph # (Auto) 1.77 (1.20-3.40) K/uL [place] # (Auto) 0.74 H (0.11-0.59) K/uL Eos # (Auto) 0.42 (0.00-0.50) K/uL Baso # (Auto) 0.05 (0.00-0.20) K/uL Immature Gran # (Auto) 0.03 (0.01-0.20) K/uL Sodium 138 (136-145) mmol/L Potassium 3.6 (3.5-5.1) mmol/L Chloride 106 (98-107) mmol/L Carbon Dioxide 27 (21-32) mmol/L Anion Gap 5 (3-11) BUN 9 (6-23) mg/dl Creatinine 0.74 (0.6-1.2) mg/dl Est Cr Clr Drug Dosing 101.2 ml/min Est GFR ( Amer) 111.8 ml/min Est GFR (Non-Af Amer) 96.5 ml/min BUN/Creatinine Ratio 12.2 (10-20) Glucose 63 L (70-99(Fasting)) mg/dl Calcium 9.5 (8.6-10.3) mg/dl Total Bilirubin 0.4 (0.2-1.0) mg/dl AST 17 (13-39) U/L ALT 14 (7-52) U/L Alkaline Phosphatase 120 H (34-104) U/L Troponin I High Sens 4.0 (0-14) pg/ml Total Protein 7.2 (6.0-8.3) gm/dl Albumin 4.3 (3.4-5.0) gm/dl Globulin 2.9 (2.5-4.0) gm/dl Albumin/Globulin Ratio 1.5 (0.9-2) Lipase 25 (11-82) U/L HCG, Qual Negative (Negative) Urine Color Yellow Urine Appearance Cloudy A (Clear) Urine pH 5.5 (4.5-7.5) Ur Specific [place] 1.013 (1.000-1.030) Urine Protein Negative (Negative) Urine Glucose (UA) Negative (Negative) Urine Ketones Negative (Negative) Urine Blood 1+ H (Negative) Urine Nitrite Positive A (Negative) Urine Bilirubin Negative (Negative) Urine Urobilinogen Negative (Negative) Ur Leukocyte Esterase Negative (Negative) Urine WBC (Auto) 0-5 (0-5) /hpf Urine RBC (Auto) 0-2 (0-2) /hpf U Hyaline Cast (Auto) 0-2 (0-2) /lpf U Epithel Cells (Auto) 11-20 H (0-2) /hpf Urine Bacteria (Auto) 4+ H (None Seen) Administered Medications Hydromorphone HCl (Hydromorphone Inj 0.5 Mg/0.5 Ml Syr) 0.25 mg IV Q6H PRN PRN Reason: Severe Pain (Scale 7, 8, 9,10) Stop: 07/11/24 23:33 Last Admin: 06/28/24 00:02 Dose: 0.25 mg Documented By: DUY Dextrose/Sodium Chloride (D5w And Nss) 1,000 mls @ 125 mls/hr IV .Q8H EUGENE Stop: 07/27/24 23:33 Last Admin: 06/28/24 00:10 Dose: 125 mls/hr Documented By: DUY Discontinued Medications Sodium Chloride (Nss) 1,000 mls @ 999 mls/hr IV .Q1H1M STA Stop: 06/27/24 20:15 Last Infusion: 06/27/24 20:24 Dose: Infused Documented By: Admin: 06/27/24 19:23 Dose: 999 mls/hr Documented By: LESLIE Piperacillin Sod/Tazobactam (Sod 4.5 gm/ Dextrose) 100 mls @ 200 mls/hr IV NOW ONE; Protocol Stop: 06/27/24 21:48 Last Infusion: 06/27/24 22:34 Dose: Infused Documented By: Admin: 06/27/24 22:04 Dose: 200 mls/hr Documented By: IRENE Ketorolac Tromethamine (Ketorolac Tromethamine 15 Mg/Ml Vial) 15 mg IV NOW STA Stop: 06/27/24 19:16 Last Admin: 06/27/24 19:23 Dose: 15 mg Documented By: LESLIE Morphine Sulfate (Morphine Sulfate 4 Mg/Ml 1 Ml Carp\Vial) 4 mg IV NOW STA Stop: 06/27/24 19:16 Last Admin: 06/27/24 19:24 Dose: 4 mg Documented By: LESLIE Morphine Sulfate (Morphine Sulfate 4 Mg/Ml 1 Ml Carp\Vial) 4 mg IV Q20M PRN PRN Reason: Pain Stop: 07/11/24 20:35 Last Admin: 06/27/24 20:41 Dose: 4 mg Documented By: LESLIE Ondansetron HCl (Ondansetron Inj 2 Mg/Ml 2 Ml Vial) 4 mg IV NOW STA Stop: 06/27/24 19:16 Last Admin: 06/27/24 19:23 Dose: 4 mg Documented By: LCD Imaging Data Radiologist's Impression: Gallbladder Ultrasound 06/27/24 19:16 Exam(s): US GALLBLADDER EXAM: US Abdomen Limited, Gallbladder CLINICAL HISTORY: Right upper quadrant Pain. TECHNIQUE: Real-time ultrasound of the right upper quadrant with image documentation. COMPARISON: None FINDINGS: Liver: The liver measures 20.6 cm. There is increased echogenicity of the liver. No mass. Gallbladder: Cholelithiasis. Thickened gallbladder wall could relate to chronic liver disease or acute cholecystitis. Common bile duct: Upper limits of normal common bile duct measuring 0. 6 cm. No stones. No dilation. Pancreas: The pancreas is not visualized due to overlying bowel gas. Right kidney: Unremarkable. No stones. No hydronephrosis. The right kidney measures 10.2 cm. Free fluid: There is trace free fluid surrounding the liver which is nonspecific. IMPRESSION: 1. Cholelithiasis. Thickened gallbladder wall could relate to chronic liver disease or acute cholecystitis. 2. Upper limits of normal common bile duct measuring 0.6 cm. 3. Hepatomegaly with fatty infiltration of the liver. 4. There is trace free fluid surrounding the liver which is nonspecific. Electronically signed by: Saadia He MD 06/28/24 00:11 AM Discharge Plan Visit Data Chief Complaint: Rib Injury/Pain Stated Complaint: RIB PAIN, SOB, RT FLANK PAIN ED Provider: Marty Shipley Discharge Problem: RUQ abdominal pain, Acute cholecystitis, UTI (urinary tract infection), Elevated liver enzymes Patient Disposition: Admitted As Inpatient Condition: Fair Discharge Instructions Interventions: ED Discharge Assessment Last Done: 06/27/24 23:05 Discharge Problem: UTI (urinary tract infection) Qualifiers: Urinary tract infection type: acute cystitis Hematuria presence: without hematuria Qualified Code(s): N30.00 - Acute cystitis without hematuria
[2024-06-27 19:45] LABS: Basophils # (auto) 0.05 K/uL (0.00-0.20); Basophils % (auto) 0.5 %; Eosinophils # (auto) 0.42 K/uL (0.00-0.50); Hematocrit (blood only) 39.7 % (37.0-47.0); Hemoglobin 13.5 g/dl (12.0-16.0); Immature Granulocytes # (auto) 0.03 K/uL (0.01-0.20); Immature Granulocytes % (auto) 0.3 %; Lymphocytes # (auto) 1.77 K/uL (1.20-3.40); Lymphocytes % (auto) 17.1 %; Mean Corpuscular Hemoglobin 29.7 pg (25.0-34.0); Mean Corpuscular Volume 87.4 fL (80.0-100.0); Mean Platelet Volume 10.6 fL (9.4-12.4); Monocytes # (auto) 0.74 K/uL (0.11-0.59); Monocytes % (auto) 7.1 %; Neutrophils # (auto) 7.37 K/uL (1.40-6.50); Platelet Count 238 K/uL (130-400); RDW Coefficient of Variation 12.7 % (11.5-14.5); RDW Standard Deviation 41.3 fL (36.4-46.3); Red Blood Count 4.54 M/uL (4.20-5.40); White Blood Count 10.38 K/ul (4.8-10.8)
[2024-06-27 20:01] LABS: Albumin Globulin Ratio 1.5 (0.9-2); Albumin Level 4.3 gm/dl (3.4-5.0); BUN Creatinine Ratio 12.2 (10-20); Bilirubin,Total 0.4 mg/dl (0.2-1.0); Calcium 9.5 mg/dl (8.6-10.3); Creatinine Clr Calc Pharmacy 101.2 ml/min; Est GFR (African American) 111.8 ml/min; Est GFR (Non-African American) 96.5 ml/min; Globulin 2.9 gm/dl (2.5-4.0); Potassium 3.6 mmol/L (3.5-5.1); Total Protein 7.2 gm/dl (6.0-8.3)
[2024-06-27 20:02] LABS: Pregnancy Test, Serum Negative (Negative)
[2024-06-27] MEDS: MoRPHine SULFATE 4 MG/ML 1 ML CARP\\VIAL IV PRN (20:41)
[2024-06-27 21:25] LABS: Appearance Urine Cloudy (Clear); Bacteria Urine Automated 4+ (None Seen); Bilirubin Urine Negative (Negative); Blood Urine 1+ (Negative); Cast Urine Automated 0-2 /lpf (0-2); Color Urine Yellow; Glucose Urine UA Negative (Negative); Ketones Urine Negative (Negative); Leukocyte Esterase Urine Negative (Negative); Nitrite Urine Positive (Negative); Protein Urine Negative (Negative); RBC Urine Automated 0-2 /hpf (0-2); Specific Gravity Urine 1.013 (1.000-1.030); Urobilinogen Urine Negative (Negative); WBC Urine Automated 0-5 /hpf (0-5); pH Urine 5.5 (4.5-7.5)
[2024-06-27] MEDS: PIPERACILLIN/TAZOBACTAM 4.5 GM in DEXTROSE 5% MINI-B 100 ML IV ONE (22:04)
--- NOTE | 2024-06-27 22:20 | History & Physical Report ---
Date of Service June 27, 2024 Assessment & Plan (1) Dyslipidemia: (2) Asthma: (3) Hypothyroidism: (4) Anxiety: (5) Acute cholecystitis: Plan Patient is a 49-year-old female with past medical history of hyperlipidemia, asthma, anxiety with depression, and hypothyroidism who is admitted due to likely acute cholecystitis and surgical intervention for cholecystectomy. RUQ pain // Cholecystitis? - Patient with RUQ pain w/ associated nausea and feverish; no fevers at the time of admission - Labs with possible subjective leukocytosis and neutrophilia; LFTs only remarkable for elevated alk phos at 120 - Gallbladder US not yet formally read at the time of evaluation, but marked tenderness on palpation of RUQ and what looks to me like gallstones and thickened gallbladder mathew in US is suggestive of acute cholecystitis - Will admit patient to Med/Surg - General Surgery with tentative plan for cholecystectomy tomorrow - Will add Zosyn for antibiotic coverage - IVF with D5/NSS as patient is hypoglycemic (asymptomatic) and to remain NPO for her procedure - Pain control with Tylenol 1000 mg (mild), Toradol 15 mg IV (moderate), or Dilaudid 0.25 mg (severe) Asymptomatic UTI - Patient with U/A showing signs of UTI; U/Cx pending - Patient is asymptomatic, nevertheless, Zosyn should also cover UTI Asthma - No current symptoms - Continue prn albuterol Hypothyroidism - Continue home levothyroxine HLD - Continue home meds Anxiety w/ depression - Continue home meds Dispo: Med/Surg Fluids: LR @ 125 cc/hr Diet: NPO due to procedure tomorrow Pain Control:Tylenol for mild pain, Toradol for moderate pain, Dilaudid 0.25 mg for severe pain VTE ppx: SCD; no chemoprophylaxis due to procedure tomorrow Code Status: Full History of Present Illness Chief Complaint: Abdominal pain Primary Care Provider: Shayy Cabrera MD Patient is a 49-year-old female with past medical history of hyperlipidemia, asthma, anxiety with depression, and hypothyroidism who came to the emergency department due to abdominal pain. Patient states that her pain began really yesterday and it was more localized to the right upper quadrant and radiating down to her epigastric region and right flank. Describes the pain as sharp and stabbing and that is not relieved by position changes or by using Tylenol, Aleve, or Advil. Pain related to meals, however patient states that she has decreased her food intake and has only had a handful of chips today at 3 PM. Patient also refers that she has been feeling nauseous without vomiting and has no episodes of quantified fevers but has been feeling feverish today. Denies chest pain, shortness of breath, chills, weakness, lightheadedness, syncope, or any other symptom. ED Course: Given a 1 L normal saline bolus, single dose of Toradol 15 mg IV, Zofran 4 mg IV x 1, morphine 4 mg x 2, and single dose of Zosyn. ED physician spoke to general surgery (Dr. Bekah Vila) who stated that they would take patient to the OR for cholecystectomy tomorrow. Labs/Imaging: CBC with possible significant leukocytosis as patient's usual WBC count is 7, neutrophilia, no anemia. CMP with electrolytes within reference range, creatinine 0.74, hyperglycemia with blood sugar of 63. LFTs with liver enzymes within normal limits and elevated alk phos of 120. Lipase of 25. Negative test. UA with positive nitrites and 4+ bacteria. Liver ultrasound but will not read. Medical History: [Reviewed] Medications: [Reviewed] Surgical History: [Reviewed] Family history: [Reviewed] Allergies: [Reviewed] Social History: [Reviewed] Allergies Allergy/AdvReac Type Severity Reaction Status Date / Time No Known Allergies Allergy Unknown Verified 06/27/24 20:10 Home Medications Medication Instructions Recorded Confirmed Type levonorgestrel 21 mcg/24 hr (up to 1 device intrauterine CONTINOUS 04/08/23 06/27/24 History 8 years) 52 mg intrauterine device (Mirena) bupropion HCl 150 mg 24 hr tablet, 150 mg PO QAM #90 tabs 04/20/23 06/27/24 Rx extended release (Wellbutrin XL) valacyclovir 500 mg tablet 500 mg PO BID PRN ud 06/08/23 06/27/24 History (Valtrex) levothyroxine 150 mcg tablet 150 mcg PO QAM 01/05/24 06/27/24 History citalopram 40 mg tablet 40 mg PO QAM 90 days #90 tabs 04/19/24 06/27/24 Rx albuterol sulfate 90 mcg/actuation 2 puff inhalation QID PRN 06/27/24 06/27/24 History aerosol inhaler Shortness Of Breath Or Wheezing Past Med/Surg History Problem List (Updated 06/28/24 @ 00:46 by Marty Shipley MD) Elevated liver enzymes (Acute) UTI (urinary tract infection) (Acute) Acute cholecystitis (Acute) RUQ abdominal pain (Acute) Acute cholecystitis Anxiety Colon cancer screening Epicondylitis, lateral, left Dyslipidemia Varicose veins of both lower extremities S/P left knee arthroscopy Morbid obesity Medial meniscus tear Tobacco use Status post left partial knee replacement (~07/2023) Hypothyroidism (Chronic) Asthma (Chronic) Stable Depression Medical History Obesity BMI 37.8 History of COVID-19 2020- fatigue, body aches, nausea; resolved Surgical History Status post left partial knee replacement (~07/2023) History of arthroscopy of knee Left knee arthroscopy (05/20/22): LMA#5 igel with good seal, easy[place] [facility] [place] Tubal ligation status 2011 H/O oral surgery delivery delivered Family History Mother Ovarian cancer Other No family history of adverse response to anesthesia Denies family history of Colon cancer Breast cancer Social History Smoking Status: Current every day smoker Tobacco Type: Cigarettes Cigarettes Per Day: 4; Second Hand Exposure: No; Do You Dip or Chew Tobacco: No; Tobacco Cessation Education Requested by Patient: Yes Hx Alcohol Use: Yes Alcohol type: hard liquor Hx Substance Use: No Preferred Language: [place] Island[place] Communication Ability: Effective Hearing Ability: Normal Installer Inspector Final Required: No Beliefs That Will Affect Care: None marital status: Current Living Situation: Spouse current occupational status: employed current occupation: Homemaker Other Information That Helps Us Care for You: No Feels Safe at Home: Yes Safety Concerns: Feels Safe At This Time Childhood Exposure to Second-Hand Smoke: Yes Diet: regular caffeine: Yes Dental Care, Regularly: Yes Physical Activity Frequency: Daily Seatbelt Use: always Sunscreen Use: Yes Assistive Devices: Glasses Review of Systems Review of Systems: As per HPI Physical Exam Physical Exam: GENERAL: Awake alert oriented, afebrile, no acute distress CARDIO: rrr, NO R/M/G PULMONARY: CTA b/l, normal respiratory effort, no respiratory distress GI: Soft, nondistended, marked tenderness to palpation of right upper quadrant and epigastric region, no suprapubic tenderness, no CVA tenderness bilaterally EXTREMITIES: no swelling or calf tenderness in b/l LE SKIN: no rashes Results & Data Results & Data Vital Signs (Past 12 Hours) Vital Signs Temp Pulse Resp BP Pulse Ox O2 Del Method 06/27/24 20:16 64 06/27/24 19:25 99 Room Air 06/27/24 18:56 36.3 C L 77 18 156/99 H 99 Room Air Supervising Physician Co-Signing Physician Notes Attending addendum: I have physically seen this patient, have supervised the medical residents activities, and agree with the H&P unless as otherwise noted. Assessment and Plan: Acute cholecystitis- Patient presented with acute worsening of right upper quadrant pain, complicated with nausea and feeling feverish Leukocytosis with left shift Gallbladder ultrasound with thickened gallbladder mathew and presence of gallstones suggestive of acute cholecystitis General surgery is aware Zosyn 4.5 g normal saline 100 mL/h Acetaminophen 1 g IV every 8 hours as needed for mild pain or fever Toradol 15 mg IV every 6 hours Dilaudid 0.25 mg IV every 3 hours as needed for severe pain Abnormal urinalysis- Follow urine culture sensitivity Zosyn as noted above will cover Asthma- Albuterol as needed Resident Activity Tracking Resident Involvement: Resident Care Provided Care Provided: Adult Hospital Medicine
[2024-06-27] MEDS ORDERED: ALBUTEROL HFA 8 GM INHALER INH PRN (23:34)
[2024-06-27] MEDS ORDERED: POLYETHYLENE (MIRALAX) 17 GM PACK PO PRN (23:34)
[2024-06-28] MEDS: HYDROmorphone INJ 0.5 MG/0.5 ML SYR IV PRN (00:02)
[2024-06-28] MEDS: D5W AND NSS 1,000 ML IV SCH (00:10)
--- NOTE | 2024-06-28 00:12 | Ultrasound Report ---
Exam(s): US GALLBLADDER EXAM: US Abdomen Limited, Gallbladder CLINICAL HISTORY: Right upper quadrant Pain. TECHNIQUE: Real-time ultrasound of the right upper quadrant with image documentation. COMPARISON: None FINDINGS: Liver: The liver measures 20.6 cm. There is increased echogenicity of the liver. No mass. Gallbladder: Cholelithiasis. Thickened gallbladder wall could relate to chronic liver disease or acute cholecystitis. Common bile duct: Upper limits of normal common bile duct measuring 0. 6 cm. No stones. No dilation. Pancreas: The pancreas is not visualized due to overlying bowel gas. Right kidney: Unremarkable. No stones. No hydronephrosis. The right kidney measures 10.2 cm. Free fluid: There is trace free fluid surrounding the liver which is nonspecific. IMPRESSION: 1. Cholelithiasis. Thickened gallbladder wall could relate to chronic liver disease or acute cholecystitis. 2. Upper limits of normal common bile duct measuring 0.6 cm. 3. Hepatomegaly with fatty infiltration of the liver. 4. There is trace free fluid surrounding the liver which is nonspecific. Electronically signed by: Saadia He MD 06/28/24 00:11 AM
[2024-06-28] MEDS: KETOROLAC TROMETHAMINE 15 MG/ML VIAL IV PRN (03:50)
[2024-06-28] MEDS: PIPERACILLIN/TAZOBACTAM 4.5 GM in DEXTROSE 5% MINI-B 100 ML IV SCH (04:13)
--- NOTE | 2024-06-28 04:32 | Billing Data ---
Date of Service June 28, 2024 Coding Level of Care Code 64696 INT INP/OBS CARE
[2024-06-28] MEDS: LEVOTHYROXINE SODIUM 150 MCG TABLET PO SCH (05:33)
[2024-06-28] MEDS: CITALOPRAM 40 MG TAB PO SCH (07:31)
[2024-06-28] MEDS: buPROPion XL 150 MG TABCR PO SCH (07:31)
[2024-06-28 07:55] LABS: Basophils # (auto) 0.02 K/uL (0.00-0.20); Basophils % (auto) 0.3 %; Eosinophils # (auto) 0.19 K/uL (0.00-0.50); Eosinophils % (auto) 2.6 %; Hematocrit (blood only) 37.4 % (37.0-47.0); Hemoglobin 12.4 g/dl (12.0-16.0); Immature Granulocytes # (auto) 0.02 K/uL (0.01-0.20); Immature Granulocytes % (auto) 0.3 %; Lymphocytes # (auto) 0.79 K/uL (1.20-3.40); Lymphocytes % (auto) 10.8 %; Mean Corpuscular Hgb Conc 33.2 g/dL (32.0-36.0); Mean Corpuscular Volume 90.3 fL (80.0-100.0); Mean Platelet Volume 10.3 fL (9.4-12.4); Monocytes # (auto) 0.45 K/uL (0.11-0.59); Monocytes % (auto) 6.2 %; Neutrophils # (auto) 5.83 K/uL (1.40-6.50); Neutrophils % (auto) 79.8 %; Platelet Count 174 K/uL (130-400); RDW Coefficient of Variation 12.7 % (11.5-14.5); Red Blood Count 4.14 M/uL (4.20-5.40)
--- NOTE | 2024-06-28 08:05 | XRay Report ---
SINGLE VIEW CHEST CLINICAL HISTORY: Right-sided chest pain. FINDINGS: An AP, portable, upright chest radiograph is compared to study dated 07/04/2023. The cardiom ediastinal silhouette is top normal for projection. There is mild bibasilar atelectasis. The lungs an d pleural spaces are otherwise clear. No pneumothorax is seen. The bony thorax is grossly intact. IMPRESSION: No active disease in the chest. ACT 112: Negative or not required by law. Electronically signed by: Marty Wood M.D. 06/28/2024 8:04 AM
[2024-06-28 08:25] LABS: Albumin Globulin Ratio 1.4 (0.9-2); Albumin Level 3.6 gm/dl (3.4-5.0); BUN Creatinine Ratio 10.3 (10-20); Bilirubin,Total 1.2 mg/dl (0.2-1.0); Calcium 8.4 mg/dl (8.6-10.3); Creatinine Clr Calc Pharmacy 110.5 ml/min; Est GFR (African American) 120.7 ml/min; Est GFR (Non-African American) 104.2 ml/min; Globulin 2.6 gm/dl (2.5-4.0); Potassium 3.7 mmol/L (3.5-5.1); Total Protein 6.2 gm/dl (6.0-8.3)
--- NOTE | 2024-06-28 08:52 | Surgery Consultation ---
Date of Consultation June 28, 2024 Assessment & Plan (1) Acute cholecystitis: This is a 49yF with a PMH of HLD, tobacco use, hypothyroid, asthma, anxiety/depression who presents to the [facility] ED on 06/27/24 with complaints of RUQ/epigastric abdominal pain that started Tuesday evening. It is associated with nausea and bloating. She came to the ER due to her symptoms. Workup with a RUQ US was obtained that revealed Cholelithiasis, in addition to a thickened gallbladder wall could relate to chronic liver disease or acute cholecystitis. Upper limits of normal common bile duct measuring 0.6 cm. Today's lab work shows a WBC 7.3,Hbg 12.4 with elevation in her LFTs to Tb 1.2, Tb 1.2 (0.4), SAT 352, ALT 336, Alkp 222. Vital signs are stable. On examination her abdomen is soft, with discomfort to palpation in the epigastric and RUQ regions. History, exam, and imaging are certainly concerning for gallbladder etiology of her symptoms. However she has had an elevation in the LFTs today which is concerning in conjunction with CBD measuring in the upper limits. Therefore we will obtain an MRCP today for further information given these findings. Pt is agreeable, continue NPO, IVF, IV abx. Supervising Physician Co-Signing Physician Notes I have seen and examined this patient and reviewed her labs and imaging. I agree with this plan. She has been consented for a laparoscopic cholecystectomy as the robot was unavailable at this time. Possible open, possible IOC. The details have been explained to the patient including the risks and benefits. She expressed understanding of this explanation and all of her questions were answered. Consent was obtained. History of Present Illness Attending Physician: Elen Pacheco MD History of Present Illness This is a 49yF with a PMH of HLD, Tobacco use, hypothyroid, asthma, anxiety/depression who presents to the [facility] ED on 06/27/24 with complaints of abdominal pain. She states her pain started tuesday night and has been constant since, rating it about a 7/10. It is mostly located in the RUQ/epigastric regions. She gets intermittent waves of sharp pains with this. It is associated with nausea and bloating. She came to the ER due to her symptoms. Workup with a RUQ US was obtained that revealed Cholelithiasis, in addition to a thickened gallbladder wall could relate to chronic liver disease or acute cholecystitis. Upper limits of normal common bile duct measuring 0.6 cm. Patient denies vomiting, fevers, chills, SOB, or new diarrhea/constipation. She states prior to her pain starting she did eat cheesy ranch hamburger helper for dinner. Since then she has been intermittently eating and she gets bloated afterwards, but it hasn't really affected her pain. This never happened to her before to this severity. PSH includes a tubal ligation and . She does get some occasional radiation of pain into her back. Allergies Allergy/AdvReac Type Severity Reaction Status Date / Time No Known Allergies Allergy Unknown Verified 06/27/24 20:10 Home Medications Medication Instructions Recorded Confirmed Type levonorgestrel 21 mcg/24 hr (up to 1 device intrauterine CONTINOUS 04/08/23 06/27/24 History 8 years) 52 mg intrauterine device (Mirena) bupropion HCl 150 mg 24 hr tablet, 150 mg PO QAM #90 tabs 04/20/23 06/27/24 Rx extended release (Wellbutrin XL) valacyclovir 500 mg tablet 500 mg PO BID PRN ud 06/08/23 06/27/24 History (Valtrex) levothyroxine 150 mcg tablet 150 mcg PO QAM 01/05/24 06/27/24 History citalopram 40 mg tablet 40 mg PO QAM 90 days #90 tabs 04/19/24 06/27/24 Rx albuterol sulfate 90 mcg/actuation 2 puff inhalation QID PRN 06/27/24 06/27/24 History aerosol inhaler Shortness Of Breath Or Wheezing Patient History Medical History Obesity BMI 37.8 History of COVID-19 2020- fatigue, body aches, nausea; resolved Surgical History History of arthroscopy of knee Left knee arthroscopy (05/20/22): LMA#5 igel with good seal, easy, [place]ra[place] at [facility] [place] [facility] [place] Tubal ligation status 2011 H/O oral surgery delivery delivered Family History Mother Ovarian cancer Other No family history of adverse response to anesthesia Denies family history of Colon cancer Breast cancer Social History Smoking Status: Current every day smoker Tobacco Type: Cigarettes Cigarettes Per Day: 4; Second Hand Exposure: No; Do You Dip or Chew Tobacco: No; Tobacco Cessation Education Requested by Patient: Yes Hx Alcohol Use: Yes Alcohol type: hard liquor Hx Substance Use: No Preferred Language: Macedonian Communication Ability: Effective Hearing Ability: Normal Binder And Box Builder Required: No Beliefs That Will Affect Care: None marital status: Current Living Situation: Spouse current occupational status: employed current occupation: Homemaker Other Information That Helps Us Care for You: No Feels Safe at Home: Yes Safety Concerns: Feels Safe At This Time Childhood Exposure to Second-Hand Smoke: Yes Diet: regular caffeine: Yes Dental Care, Regularly: Yes Physical Activity Frequency: Daily Seatbelt Use: always Sunscreen Use: Yes Assistive Devices: None Review of Systems Constitutional: no fever and no chills Respiratory: no dyspnea Cardiovascular: Additional Comments: some mild discomfort into chest 2/2 pain Gastrointestinal: + abdominal pain (RUQ/epigastric) and + bloating; no nausea, no vomiting and no change in bowel habits Physical Exam Physical Exam: awake/alert, no distress Constitutional: well developed and + obese Respiratory: normal respiratory effort Gastrointestinal (Abdomen): Inspection/Auscultation: abdomen not distended Percussion/Palpation: + abdomen tender (ttp in epigastric and RUQ) and abdomen soft Results & Data Vital Signs (Past 12 Hours) Vital Signs Temp Pulse Pulse Resp BP Pulse Ox O2 Del Method 06/28/24 07:23 97.9 F 60 16 120/77 98 Room Air 06/27/24 23:34 Room Air 06/27/24 23:34 97.9 F 60 18 155/80 H 98 Room Air 06/27/24 22:54 59 L 18 150/90 H 98 Room Air Diagnostic Findings Exam(s): US GALLBLADDER EXAM: US Abdomen Limited, Gallbladder CLINICAL HISTORY: Right upper quadrant Pain. TECHNIQUE: Real-time ultrasound of the right upper quadrant with image documentation. COMPARISON: None FINDINGS: Liver: The liver measures 20.6 cm. There is increased echogenicity of the liver. No mass. Gallbladder: Cholelithiasis. Thickened gallbladder wall could relate to chronic liver disease or acute cholecystitis. Common bile duct: Upper limits of normal common bile duct measuring 0. 6 cm. No stones. No dilation. Pancreas: The pancreas is not visualized due to overlying bowel gas. Right kidney: Unremarkable. No stones. No hydronephrosis. The right kidney measures 10.2 cm. Free fluid: There is trace free fluid surrounding the liver which is nonspecific. IMPRESSION: 1. Cholelithiasis. Thickened gallbladder wall could relate to chronic liver disease or acute cholecystitis. 2. Upper limits of normal common bile duct measuring 0.6 cm. 3. Hepatomegaly with fatty infiltration of the liver. 4. There is trace free fluid surrounding the liver which is nonspecific. Electronically signed by: Saadia He MD 06/28/24 00:11 AM PG Care Time/CCT Total # of Minutes Spent Total Time Spent with Patient: Total time spent is greater than 50% in coordination of care (as documented) at patient's floor/unit and/or counseling patient: Coding Level of Care Code 34819 IN/OBS CONSULT LVL 3,45M Diagnoses Acute cholecystitis K81.0
--- NOTE | 2024-06-28 11:45 | Electrocardiogram Report ---
Test Reason : Blood Pressure : */* mmHG Vent. Rate : 65 BPM Atrial Rate : 65 BPM P-R Int : 174 ms QRS Dur : 84 ms QT Int : 380 ms P-R-T Axes : 39 13 27 degrees QTcB Int : 395 ms Normal sinus rhythm Poor R wave progression, consider anterior VA vs. lead placement vs. LVH Abnormal ECG When compared with ECG of 04-Jul-2023 09:24, Borderline criteria for Anterior infarct are now Present T wave amplitude has decreased in Anterior leads Confirmed by Jacques Alejandro ([id number]) on 06/28/2024 11:45:07 AM Referred By: REFERRED SELF Confirmed By: Jacques Alejandro
--- NOTE | 2024-06-28 12:47 | Hospitalist Progress Note ---
Date of Service June 28, 2024 Assessment & Plan (1) Dyslipidemia: (2) Asthma: (3) Hypothyroidism: (4) Anxiety: (5) Acute cholecystitis: Plan Patient is a 49-year-old female with past medical history of hyperlipidemia, asthma, anxiety with depression, and hypothyroidism who is admitted due to likely acute cholecystitis and surgical intervention for cholecystectomy. RUQ pain // Cholecystitis? - Patient with RUQ pain w/ associated nausea and feverish; no fevers at the time of admission - Labs with possible subjective leukocytosis and neutrophilia; LFTs only remarkable for elevated alk phos at 120 - Gallbladder US not yet formally read at the time of evaluation, but marked tenderness on palpation of RUQ and what looks to me like gallstones and thickened gallbladder mathew in US is suggestive of acute cholecystitis - Will admit patient to Med/Surg - General Surgery with tentative plan for cholecystectomy tomorrow - Will add Zosyn for antibiotic coverage - IVF with D5/NSS as patient is hypoglycemic (asymptomatic) and to remain NPO for her procedure - Pain control with Tylenol 1000 mg (mild), Toradol 15 mg IV (moderate), or Dilaudid 0.25 mg (severe) 06/28 LFTs are trending up, MRCP report is pending , surgery input appreciated, continue antibiotics Asymptomatic UTI - Patient with U/A showing signs of UTI; U/Cx pending - Patient is asymptomatic, nevertheless, Zosyn should also cover UTI Asthma - No current symptoms - Continue prn albuterol Hypothyroidism - Continue home levothyroxine HLD - Continue home meds Anxiety w/ depression - Continue home meds Dispo: Med/Surg Fluids: LR @ 125 cc/hr Diet: NPO due to procedure tomorrow Pain Control:Tylenol for mild pain, Toradol for moderate pain, Dilaudid 0.25 mg for severe pain VTE ppx: SCD; no chemoprophylaxis due to procedure tomorrow Code Status: Full Admission and Anticipated Discharge Date Admission Date: June 27, 2024 Supervising Physician Co-Signing Physician Notes Attending addendum: I have physically seen this patient, have supervised the medical residents activities, and agree with the H&P unless as otherwise noted. Assessment and Plan: Acute cholecystitis- Patient presented with acute worsening of right upper quadrant pain, complicated with nausea and feeling feverish Leukocytosis with left shift Gallbladder ultrasound with thickened gallbladder mathew and presence of gallstones suggestive of acute cholecystitis General surgery is aware Zosyn 4.5 g normal saline 100 mL/h Acetaminophen 1 g IV every 8 hours as needed for mild pain or fever Toradol 15 mg IV every 6 hours Dilaudid 0.25 mg IV every 3 hours as needed for severe pain Abnormal urinalysis- Follow urine culture sensitivity Zosyn as noted above will cover Asthma- Albuterol as needed Subjective reports right upper quadrant pain Review of Systems Review of Systems: All systems reviewed & are unremarkable except as noted in Subjective Physical Exam Physical Exam: head atraumatic neck supple chest CTA b/l heart S1S2 regular abdomen right upper quadrant tender extremities no edema neuro AAO times 3 Results & Data Results & Data Vital Signs (Past 12 Hours) Vital Signs Temp Pulse Resp BP Pulse Ox O2 Del Method 06/28/24 07:23 36.6 C 60 16 120/77 98 Room Air 06/28/24 07:00 Room Air Laboratory Results Abnormal lab results 06/27/24 06/27/24 06/28/24 Range/Units 19:22 20:43 07:27 RBC 4.14 L (4.20-5.40) M/uL Neut # (Auto) 7.37 H (1.40-6.50) K/uL Lymph # (Auto) 0.79 L (1.20-3.40) K/uL Knott # (Auto) 0.74 H (0.11-0.59) K/uL Glucose 63 L (70-99(Fasting)) mg/dl Calcium 8.4 L (8.6-10.3) mg/dl Total Bilirubin 1.2 H D (0.2-1.0) mg/dl AST 352 H (13-39) U/L ALT 336 H (7-52) U/L Alkaline Phosphatase 120 H 222 H (34-104) U/L Urine Appearance Cloudy A (Clear) Urine Blood 1+ H (Negative) Urine Nitrite Positive A (Negative) U Epithel Cells (Auto) 11-20 H (0-2) /hpf Urine Bacteria (Auto) 4+ H (None Seen) Diagnostic Findings Abnormal lab results 06/27/24 06/27/24 06/28/24 Range/Units 19:22 20:43 07:27 RBC 4.14 L (4.20-5.40) M/uL Neut # (Auto) 7.37 H (1.40-6.50) K/uL Lymph # (Auto) 0.79 L (1.20-3.40) K/uL Knott # (Auto) 0.74 H (0.11-0.59) K/uL Glucose 63 L (70-99(Fasting)) mg/dl Calcium 8.4 L (8.6-10.3) mg/dl Total Bilirubin 1.2 H D (0.2-1.0) mg/dl AST 352 H (13-39) U/L ALT 336 H (7-52) U/L Alkaline Phosphatase 120 H 222 H (34-104) U/L Urine Appearance Cloudy A (Clear) Urine Blood 1+ H (Negative) Urine Nitrite Positive A (Negative) U Epithel Cells (Auto) 11-20 H (0-2) /hpf Urine Bacteria (Auto) 4+ H (None Seen) PG Care Time/CCT Total # of Minutes Spent Total Time Spent with Patient: Total time spent is greater than 50% in coordination of care (as documented) at patient's floor/unit and/or counseling patient: Coding Level of Care Code 75194 SUB INP/OBS CARE 2/35MIN Diagnoses Dyslipidemia E78.5 Asthma J45.909 Hypothyroidism E03.9 Anxiety F41.9 Acute cholecystitis K81.0
[2024-06-28] MEDS: ACETAMINOPHEN 500 MG TAB PO PRN (13:00)
--- NOTE | 2024-06-28 13:02 | Magnetic Resonance Report ---
MRCP CLINICAL HISTORY: Right upper quadrant abdominal pain. Cholelithiasis. COMPARISON STUDY: Abdominal ultrasound dated 06/27/2024. TECHNIQUE: Abdominal MRCP is performed utilizing various T2-weighted sequences in the axial and coron al planes. 3-D reformats are created and assessed. IV contrast was not administered for this examinat ion. Diffusion-weighted imaging was utilized. FINDINGS: The gallbladder is distended and contains numerous gallstones. The gallbladder wall is significantly thickened and edematous, with mild pericholecystic inflammation. Findings are consistent with acute c holecystitis. There is no intra or extrahepatic biliary ductal dilatation. The common bile duct measu res up to 5 mm in diameter. There are no intraluminal filling defects to suggest choledocholithiasis. The pancreatic duct is normal in caliber. The unenhanced liver, spleen, adrenal glands, kidneys, and pancreas are grossly unremarkable. There i s trace perihepatic and perisplenic ascites. Trace pleural effusions are noted. The abdominal aorta i s normal in caliber. There is no evidence of bowel obstruction. IMPRESSION: 1. Cholelithiasis with acute cholecystitis. 2. There is no intra or extrahepatic biliary ductal dilatation, and no evidence of choledocholithiasi s. 3. Trace perihepatic and perisplenic ascites as well as trace pleural effusions. Dictated: 06/28/2024 12:19 PM Transcribed: 06/28/2024 12:56 PM David [id number] [email or web address] Electronically signed by: Marty Wood M.D. 06/28/2024 1:01 PM
[2024-06-28] MEDS ORDERED: MIDAZOLAM HCL 1 MG/ML 2ML VIAL ONE (13:59)
[2024-06-28] MEDS ORDERED: fentaNYL citrate PF 100 MCG/2 ML VIAL ONE ×2 (13:59→15:12)
[2024-06-28] MEDS ORDERED: LIDOCAINE 2% 2 ML VIAL/AMP(20MG/ML) INFIL ONE (14:01)
[2024-06-28] MEDS ORDERED: PROPOFOL IV EMULSION 10 MG/ML 20 ML VIAL IV ONE (14:01)
[2024-06-28] MEDS ORDERED: ROCURONIUM BROMIDE 10 MG/ML 5 ML VIAL IV ONE ×2 (14:01→16:10)
[2024-06-28] MEDS ORDERED: ONDANSETRON INJ 2 MG/ML 2 ML VIAL IV PRN (14:28)
[2024-06-28] MEDS ORDERED: ATROPINE SULFATE 0.1 MG/ML 10ML SYR IV PRN (14:28)
[2024-06-28] MEDS ORDERED: fentaNYL citrate PF 100 MCG/2 ML VIAL IV PRN (14:28)
[2024-06-28] MEDS ORDERED: ePHEDrine sulfate 50 MG/ML AMP IV PRN (14:28)
--- NOTE | 2024-06-28 14:29 | Anesthesiology Consultation ---
Date of Service June 28, 2024 Assessment & Plan Chart Review Chart Review: Acceptable Risk for Surgery and Patient NOT seen in Pre Admission Testing Consults Requested none ASA ASA3 Proposed Anesthesia Anesthesia Type: General Regional Laterality: Left Risk / Benefits Reviewed With: PT / POA / Parent / Guardian, Accepts Plan and Informed Consent Obtained History Surgery Operation Date: 06/28/24 10:25 Proposed Procedures p Laparoscopic Cholecystectomy - Peggy Lopez, Height/Weight Height: 5 ft 1 in Weight: 99.4 kg Allergies Allergy/AdvReac Type Severity Reaction Status Date / Time No Known Allergies Allergy Unknown Verified 06/27/24 20:10 Medications Home Medications Medication Instructions Recorded Confirmed Last Taken levonorgestrel 21 mcg/24 hr (up to 1 device intrauterine CONTINOUS 04/08/23 06/27/24 Unknown 8 years) 52 mg intrauterine device (Mirena) bupropion HCl 150 mg 24 hr tablet, 150 mg PO QAM #90 tabs 04/20/23 06/27/24 01/17/24 08:00 extended release (Wellbutrin XL) valacyclovir 500 mg tablet 500 mg PO BID PRN ud 06/08/23 06/27/24 Unknown (Valtrex) levothyroxine 150 mcg tablet 150 mcg PO QAM 01/05/24 06/27/24 06/27/24 citalopram 40 mg tablet 40 mg PO QAM 90 days #90 tabs 04/19/24 06/27/24 06/27/24 albuterol sulfate 90 mcg/actuation 2 puff inhalation QID PRN 06/27/24 06/27/24 Unknown aerosol inhaler Shortness Of Breath Or Wheezing Active Medications Generic Name Dose Route Start Last Admin Trade Name Freq PRN Reason Stop Dose Admin Acetaminophen 1,000 mg 06/27/24 23:34 06/28/24 13:00 Acetaminophen 500 Mg Tab PO 07/27/24 23:33 1,000 mg Q6H PRN Administration pain/fever Bupropion HCl 150 mg 06/28/24 09:00 06/28/24 07:31 Bupropion Xl 150 Mg Tabcr PO 07/28/24 08:59 150 mg QAM EUGENE Administration Citalopram Hydrobromide 40 mg 06/28/24 09:00 06/28/24 07:31 Citalopram 40 Mg Tab PO 07/28/24 08:59 40 mg QAM EUGENE Administration Hydromorphone HCl 0.25 mg 06/27/24 23:34 06/28/24 11:20 Hydromorphone Inj 0.5 Mg/0.5 Ml Syr IV 07/11/24 23:33 0.25 mg Q6H PRN Administration Severe Pain (Scale 7, 8, 9,10) Piperacillin Sod/Tazobactam 100 mls @ 25 mls/hr 06/28/24 04:00 06/28/24 14:07 Sod 4.5 gm/ Dextrose IV 07/08/24 03:59 0 mls/hr Q8H EUGENE Infusion Protocol Dextrose/Sodium Chloride 1,000 mls @ 125 mls/hr 06/27/24 23:34 06/28/24 14:07 D5w And Nss IV 07/27/24 23:33 0 mls/hr .Q8H EUGENE Infusion Ketorolac Tromethamine 15 mg 06/27/24 23:34 06/28/24 09:00 Ketorolac Tromethamine 15 Mg/Ml Vial IV 07/02/24 23:33 15 mg Q6H PRN Administration Moderate Pain (Scale 4, 5, 6) Levothyroxine Sodium 150 mcg 06/28/24 06:30 06/28/24 05:33 Levothyroxine Sodium 150 Mcg Tablet PO 07/28/24 06:29 150 mcg DAILYBB EUGENE Administration Past Medical History Medical History Obesity BMI 37.8 History of COVID-2020- fatigue, body aches, nausea; resolved Exercise / Class Metabolic Activity II 4-5 Yardwork/Stairs/Walk up hill Past Family History Family History Mother Ovarian cancer Other No family history of adverse response to anesthesia Denies family history of Colon cancer Breast cancer Past Surgical History Surgical History History of arthroscopy of knee Left knee arthroscopy (05/20/22): LMA#5 igel with good seal, easy, atraumatic at [facility] [place] Tubal ligation status 2011 H/O oral surgery delivery delivered Past Anesthesia History No Hx of Anesthesia Complications and No Family Hx of Anesthesia Complications History of PONV No Hx of PONV and No Hx of Motion Sickness Social History Smoking Status: Current every day smoker tobacco type: cigarettes Smoking cigarettes per day: 4 Do You Dip or Chew Tobacco: No Hx Alcohol Use: Yes Alcohol type: hard liquor alcohol intake frequency: holidays/special occasions only Hx Substance Use: No substance use type: does not use Review of Systems ROS Unobtainable: All systems reviewed & are unremarkable except as noted in HPI & below Physical Exam Vital Signs Last Vital Signs Temp 36.6 C 06/28/24 07:23 Pulse 60 06/28/24 07:23 Resp 16 06/28/24 07:23 BP 120/77 06/28/24 07:23 Pulse Ox 98 06/28/24 07:23 O2 Del Method Room Air 06/28/24 07:23 Constitutional + acute distress and + morbidly obese ENMT Mouth: + poor dentition; no TMJ abnormality Thyromental Distance: > or= 3.5 Finger Breadths Mallampati Class: I Mouth / Teeth: 2 1. Chipped Neck normal visual inspection and trachea midline; neck extension not limited Respiratory normal respiratory effort Auscultation: lungs clear to auscultation bilaterally Cardiovascular Rate/Rhythm: regular rate and regular rhythm Heart Sounds: no murmur Musculoskeletal Spine: normal cervical ROM Extremities: full ROM of extremities Neurologic moves all extremities Psychiatric Orientation: alert and oriented x 3 Testing Laboratory Results 06/28/24 07:27 06/28/24 07:27 Urine Color Yellow 06/27/24 20:43 Urine Appearance Cloudy (Clear) A 06/27/24 20:43 Urine pH 5.5 (4.5-7.5) 06/27/24 20:43 Ur Specific [place] 1.013 (1.000-1.030) 06/27/24 20:43 Urine Protein Negative (Negative) 06/27/24 20:43 Urine Glucose (UA) Negative (Negative) 06/27/24 20:43 Urine Ketones Negative (Negative) 06/27/24 20:43 Urine Nitrite Positive (Negative) A 06/27/24 20:43 Ur Leukocyte Esterase Negative (Negative) 06/27/24 20:43 Urine WBC (Auto) 0-5 /hpf (0-5) 06/27/24 20:43 Urine RBC (Auto) 0-2 /hpf (0-2) 06/27/24 20:43 U Hyaline Cast (Auto) 0-2 /lpf (0-2) 06/27/24 20:43 U Epithel Cells (Auto) 11-20 /hpf (0-2) H 06/27/24 20:43 Urine Bacteria (Auto) 4+ (None Seen) H 06/27/24 20:43 06/27/24 20:43 Urine Culture - Preliminary Urine,Clean Catch Gram negative bacilli Electrocardiogram Date: 06/27/24 Normal sinus rhythm Poor R wave progression, consider anterior AK vs. lead placement vs. LVH Abnormal ECG When compared with ECG of 04-Jul-2023 09:24, Borderline criteria for Anterior infarct are now Present T wave amplitude has decreased in Anterior leads Confirmed by Jacques Alejandro ([id number]) on 06/28/2024 11:45:07 AM
[2024-06-28] MEDS ORDERED: DEXAMETHASONE SOD INJ 4 MG/ML VIAL ONE (15:08)
[2024-06-28] MEDS ORDERED: ONDANSETRON INJ 2 MG/ML 2 ML VIAL ONE (15:08)
[2024-06-28] MEDS: IOVERSOL 50ml IV ONE (17:16)
[2024-06-28] MEDS: BUPIVACAINE/EPINEPHRINE 0.5% MPF 1:200,000 30 ML VIAL ONE (18:04)
[2024-06-28] MEDS ORDERED: SUGAMMADEX SODIUM 200 MG/2 ML VIAL IV ONE (18:08)
--- NOTE | 2024-06-28 18:25 | Operative Report ---
PG Post Operative Report Pre & Post Diagnosis Operation Date: 06/28/24 10:25 Pre-Op Diagnosis: Acute Cholecystitis Post-Op Diagnosis: Acute Cholecystitis I identified the patient and participated in the time-out.: Yes Procedure Operation Date: 06/28/24 10:25 Actual Procedures p Laparoscopic Cholecystectomy, Intraoperative Cholangiogram - Peggy Lopez DO Surgeon Peggy Lopez DO Database Administration Associate VIVIENNE Basurto Estimated Blood Loss 20 Findings See Below Gallbladder packed with stones, mix of hydropic and purulent fluid. Difficult cholecystectomy Specimens Gallbladder packed with mixed gold and tiny black stones. Drains 10FR Nikita drain Anesthesia Type General Description of Procedure The patient was brought back to the operating room placed on the operating room table in supine position. She was connected to cardiac and oxygen monitoring. Supplemental O2 was provided, SCDs were applied to bilateral lower extremities. The patient was administered general anesthesia and a secure airway was established. The abdomen was prepped and draped in typical sterile fashion. After intra-abdominal access was gained using a Veress needle at the umbilicus, CO2 insufflation was initiated to a goal pressure of 15 mmHg. A 5 mm trocar was inserted at this location under direct visualization using a 5 mm laparoscope and an Optiview port. After making a stab incision at the epigastric area big enough to fit a 12 mm trocar. This was introduced under direct visualization. 2 additional 5 mm trocars were introduced along the right subcostal margin under direct visualization. There were no injuries caused by the insertion of the Veress needle or any of the trocars. The gallbladder was identified and the right upper quadrant was distended and thickened. The gallbladder was grasped with a grasper and was so edematous and tense that this punctured the gallbladder wall causing the spillage of hydropic fluid as well as cold and black stones. With further manipulation of the gallbladder, pus was also ex pelled from the gallbladder. The gallbladder was elevated the lower portion of the gallbladder was dissected using blunt dissection. The infundibulum came into view and was very protuberant. The structures of the cystic triangle were enlarged and very vascular. The gallbladder was edematous in this area as well as densely adhesed. Tedious blunt dissection took place to separate the gallbladder from surrounding structures to clearly expose the cystic duct, cystic artery and a large lymph node. There was bleeding from the inflamed and edematous tissues. This was controlled with gentle cautery. The cystic duct was dilated. An intraoperative cholangiogram was attempted but there was not consistent irrigation capability of the catheter. Multiple attempts were made, the catheter was manipulated multiple times as well moment there would be the inability to irrigate the catheter versus the catheter irrigating but backflow leaking through the incision and the cystic duct. Multiple maneuvers were tried and intraoperative cholangiogram which was unsuccessful. The cystic artery and cystic duct were each ligated with 210 mm clips proximally 1 distally. The structures were cut with the laparoscopic EndoShears the gallbladder was cauterized away from the liver bed. Bleeding along the way was controlled using cautery. The gallbladder was placed in an Endo Catch bag and was removed. The epigastric incision had to be enlarged to allow for gallbladder removal. The right upper quadrant was copiously irrigated and suctioned away all of the stones that were able to be identified were removed. A 10Fr round Nikita drain was placed at the liver bed for ABEBE close suction drainage. All instruments were removed. Excess CO2 was evacuated and CO2 insufflation was discontinued. The trocars were removed. The fascia at the epigastric incision was closed with 0 Vicryl suture. The skin incisions were approximated using 4-0 Vicryl suture and sealed with Dermabond. The patient tolerated the procedure well. She was awakened from anesthesia, the secure airway was removed and she was transferred to recovery in stable condition. I attest to the content of the Intraoperative Record and any orders documented therein. Any exceptions are noted below.
--- NOTE | 2024-06-28 19:07 | Anesthesiology Progress Note ---
Date of Service June 28, 2024 Anesthesia Post Procedure Vital Signs Vital Signs: Temp Pulse Pulse Pulse Resp BP BP 06/28/24 18:53 72 20 133/73 06/28/24 18:40 37.2 C 77 17 134/78 06/28/24 18:30 78 20 134/74 06/28/24 18:21 36.1 C L 78 21 146/82 H 06/28/24 14:25 36.4 C L 54 L 20 133/83 06/28/24 07:23 36.6 C 60 16 120/77 06/28/24 07:00 06/27/24 23:34 06/27/24 23:34 36.6 C 60 18 155/80 H 06/27/24 22:54 59 L 18 150/90 H 06/27/24 20:16 64 06/27/24 19:25 Pulse Ox O2 Del Method O2 Flow Rate 06/28/24 18:53 95 Room Air 06/28/24 18:40 99 Room Air 06/28/24 18:30 98 Nasal Cannula 3 06/28/24 18:21 96 Nasal Cannula 3 06/28/24 14:25 98 Room Air 06/28/24 07:23 98 Room Air 06/28/24 07:00 Room Air 06/27/24 23:34 Room Air 06/27/24 23:34 98 Room Air 06/27/24 22:54 98 Room Air 06/27/24 20:16 06/27/24 19:25 99 Room Air Pain Intensity Right Abdomen: Pain Intensity: 7 Transfer of Care Handoff Completed per policy Notes Mental Status: alert / awake / arousable and participated in evaluation Patient Amnestic to Procedure: Yes Nausea / Vomiting: adequately controlled Pain: adequately controlled Airway Patency, RR, SpO2: stable & adequate BP & HR: stable & adequate Hydration State: stable & adequate Anesthetic Complications: no major complications apparent and Pt Satisfied with anesthetic care
--- NOTE | 2024-06-28 19:24 | Fluoroscopy Report ---
[place] cholangiogram OR CLINICAL HISTORY: CHOLANGIOGRAM COMPARISON STUDY: Right upper quadrant ultrasound June 27, 2024. MRCP June 28, 2024. FLUOROSCOPY TIME: 15 seconds. Ka, r: 4.21 mGy FLUOROSCOPIC IMAGES: 4 FINDINGS: No contrast is identified within the common bile duct. A small amount of extraluminal contr ast at the level of the cystic duct is noted. There is no opacification of the intra or extra hepatic bile ducts. IMPRESSION: No contrast within the intra or extrahepatic ducts. This suggests a nondiagnostic intraop erative cholangiogram. ACT 112: Negative or not required by law. Electronically signed by: Ramon Hardin M.D. 06/28/2024 7:23 PM
[2024-06-28] MEDS: MoRPHine SULFATE 4 MG/ML 1 ML CARP\\VIAL IV PRN (20:21)
[2024-06-28] MEDS ORDERED: Nursing to Pharmacy Communication SCH (20:45)
[2024-06-29 07:29] LABS: Basophils # (auto) 0.02 K/uL (0.00-0.20); Basophils % (auto) 0.2 %; Eosinophils # (auto) 0.01 K/uL (0.00-0.50); Eosinophils % (auto) 0.1 %; Hematocrit (blood only) 32.5 % (37.0-47.0); Immature Granulocytes # (auto) 0.05 K/uL (0.01-0.20); Immature Granulocytes % (auto) 0.5 %; Lymphocytes # (auto) 0.87 K/uL (1.20-3.40); Lymphocytes % (auto) 8.2 %; Mean Corpuscular Hemoglobin 30.3 pg (25.0-34.0); Mean Corpuscular Hgb Conc 33.8 g/dL (32.0-36.0); Mean Corpuscular Volume 89.5 fL (80.0-100.0); Mean Platelet Volume 10.9 fL (9.4-12.4); Monocytes # (auto) 0.55 K/uL (0.11-0.59); Monocytes % (auto) 5.2 %; Neutrophils # (auto) 9.09 K/uL (1.40-6.50); Neutrophils % (auto) 85.8 %; Platelet Count 166 K/uL (130-400); RDW Coefficient of Variation 12.7 % (11.5-14.5); RDW Standard Deviation 42.1 fL (36.4-46.3); Red Blood Count 3.63 M/uL (4.20-5.40); White Blood Count 10.59 K/ul (4.8-10.8)
[2024-06-29 07:44] LABS: Albumin Globulin Ratio 1.3 (0.9-2); Albumin Level 3.5 gm/dl (3.4-5.0); BUN Creatinine Ratio 9.8 (10-20); Bilirubin,Total 1.2 mg/dl (0.2-1.0); Calcium 8.3 mg/dl (8.6-10.3); Creatinine Clr Calc Pharmacy 123.2 ml/min; Est GFR (African American) 125.1 ml/min; Globulin 2.6 gm/dl (2.5-4.0); Potassium 3.6 mmol/L (3.5-5.1); Total Protein 6.1 gm/dl (6.0-8.3)
[2024-06-29] MEDS: oxyCODONE HCL IR 5 MG TAB (IMMEDIATE RELEASE) PO PRN ×2 (08:19→17:28)
--- NOTE | 2024-06-29 09:41 | Surgery Progress Note ---
Date of Service June 29, 2024 Assessment & Plan (1) Elevated liver enzymes: Plan: Will consult GI for further recommendations AST/ALT down trending however T. Bili 1.2 (1.2) and alkal. phos. 233 (222) elevated Repeat labs tomorrow Am (2) S/P laparoscopic cholecystectomy: Plan: expected post operative pain dermabond CDI ABEBE drain serosanguineous tolerating clears , pt requests to stay on this diet at this time. May advance to low fat when ready. GI will follow up on further diet recommendations depending on whether or not they will plan a procedure and when. no WBC elevation Pt seen and examined with Dr. Jessica Baldwin covering this weekend - drain may be removed if it is draining less than 30cc/ day and there is no further question of choledocholithiasis or will be removed in the office. Admission and Anticipated Discharge Date Admission Date: June 27, 2024 Supervising Physician Co-Signing Physician Notes I have seen and examined this patient with the surgical OUTBOUND SALES EXECUTIVE. I agree with this plan Follow up with me in the office 1 -2 weeks after discharge. Subjective pt reports expected post operative discomfort no n/v tolerating clears Review of Systems Constitutional: no fever and no chills Respiratory: no dyspnea Cardiovascular: no chest pain Gastrointestinal: + abdominal pain; no nausea and no vomit ing Physical Exam Constitutional: cooperative and comfortable; no acute distress Respiratory: normal respiratory effort and able to speak in complete sentences; no respiratory distress Cardiovascular: Rate/Rhythm: regular rate Gastrointestinal (Abdomen): Inspection/Auscultation: + abdominal surgical incision (dermabond CDI) and + abdominal surgical drain present; abdomen not distended Percussion/Palpation: abdomen soft Results & Data Vital Signs (Past 12 Hours) Vital Signs Temp Pulse Resp BP BP Pulse Ox O2 Del Method 06/29/24 07:20 98.2 F 69 16 147/72 H 96 Room Air 06/29/24 02:58 98.8 F 66 16 147/76 H 97 Room Air 06/28/24 23:00 97.9 F 64 14 150/72 H 95 Room Air Results CBC w Diff Results: RBC 3.63 M/uL (4.20-5.40) L 06/29/24 WBC 10.59 K/ul (4.8-10.8) 06/29/24 Hgb 11.0 g/dl (12.0-16.0) L 06/29/24 Hct 32.5 % (37.0-47.0) L 06/29/24 MCV 89.5 fL (80.0-100.0) 06/29/24 MCH 30.3 pg (25.0-34.0) 06/29/24 MCHC 33.8 g/dL (32.0-36.0) 06/29/24 RDW Standard Deviation 42.1 fL (36.4-46.3) 06/29/24 RDW Coefficient of Variation 12.7 % (11.5-14.5) 06/29/24 Plt Count 166 K/uL (130-400) 06/29/24 MPV 10.9 fL (9.4-12.4) 06/29/24 Neutrophils (%) (Auto) 85.8 % 06/29/24 Lymphocytes (%) (Auto) 8.2 % 06/29/24 Monocytes # (Auto) 0.55 K/uL (0.11-0.59) 06/29/24 Eosinophils # (Auto) 0.01 K/uL (0.00-0.50) 06/29/24 Immature Granulocyte % (Auto) 0.5 % 06/29/24 Neutrophils # (Auto) 9.09 K/uL (1.40-6.50) H 06/29/24 Lymphocytes # (Auto) 0.87 K/uL (1.20-3.40) L 06/29/24 Monocytes # (Auto) 0.55 K/uL (0.11-0.59) 06/29/24 Eosinophils # (Auto) 0.01 K/uL (0.00-0.50) 06/29/24 Basophils # (Auto) 0.02 K/uL (0.00-0.20) 06/29/24 Immature Granulocyte # (Auto) 0.05 K/uL (0.01-0.20) 4 Results CMP Results: Na 140 mmol/L (136-145) 06/29/24 K 3.6 mmol/L (3.5-5.1) 06/29/24 Cl 108 mmol/L (98-107) H 06/29/24 CO2 27 mmol/L (21-32) 06/29/24 Anion Gap 5 (3-11) 06/29/24 BUN 6 mg/dl (6-23) 06/29/24 Creatinine 0.61 mg/dl (0.6-1.2) 06/29/24 Estimated GFR ( Amer) 125.1 ml/min 06/29/24 Estimated GFR (Non-Af Amer) 108.0 ml/min 06/29/24 BUN/Creatinine Ratio 9.8 (10-20) L 06/29/24 Glu 116 mg/dl (70-99(Fasting)) H 06/29/24 Ca 8.3 mg/dl (8.6-10.3) L 06/29/24 Total Bilirubin 1.2 mg/dl (0.2-1.0) H 06/29/24 AST 137 U/L (13-39) H 06/29/24 ALT 222 U/L (7-52) H 06/29/24 Alkaline Phosphatase 233 U/L (34-104) H 06/29/24 TP 6.1 gm/dl (6.0-8.3) 06/29/24 Albumin 3.5 gm/dl (3.4-5.0) 06/29/24 Globulin 2.6 gm/dl (2.5-4.0) 06/29/24 Albumin/Globulin Ratio 1.3 (0.9-2) 06/29/24 PG Care Time/CCT Total # of Minutes Spent Total Time Spent with Patient: Total time spent is greater than 50% in coordination of care (as documented) at patient's floor/unit and/or counseling patient: Coding Level of Care Code 96546 Post Operative Follow-Up Diagnoses Elevated liver enzymes R74.8 S/P laparoscopic cholecystectomy Z90.49
--- NOTE | 2024-06-29 09:53 | Gastrointestinal Consultation ---
Date of Consultation June 29, 2024 Assessment & Plan (1) S/P laparoscopic cholecystectomy: 49 year old female with history of asthma, anxiety/depression, dyslipidemia, hypothyroidism and others below admitted through the ED on 06/28/24 with acute cholecystitis POD #1 lap CCY - w/ elevated LFTs (downtrending, Tbili 1.2, AST 137, ALT 222, ALKP 233) w/o any intrahepatic or extrahepatic biliary ductal dilatation or choledocholithiasis on MRCP, IOC without contrast within the intra or extrahepatic ducts and was interpreted as a nondiagnostic intraoperative cholangiogram. As her LFTs are downtrending, she is afebrile without leukocytosis and abdominal pain improved, management options include transfer for EUS evaluation or remaining at [facility] to trend LFTs. If LFTs remain elevated or she develops s/s of cholangitis, ERCP would be indicated at that time. - No GI contraindication to diet - Trend LFTs - NPO after midnight until LFTs are reviewed I spent a total of 50 minutes on the date of service in review of patient's record, and previously obtained information in person and appropriate medical visit, discussion and education of plan, with patient and/or caregiver, placing orders for tests/referral/procedures as medically necessary and documentation of pertinent clinical information in patient's medical records for their visit today. Thank you for allowing us to participate in the care of this patient. Please call with any acute changes, questions or concerns. Please see addendum below with additional recommendation from my supervising physician. Supervising Physician Co-Signing Physician Notes I personally saw and examined the patient. I have reviewed the chart and agree with the documentation provided by the LAY OUT CARPENTER including discussion about the assessment, treatment and plan. Briefly, 49 year old female with history of asthma, anxiety/depression, dyslipidemia, hypothyroidism and others below admitted through the ED on 06/28/24 with acute cholecystitis POD #1 lap CCY - w/ elevated LFTs (downtrending, Tbili 1.2, AST 137, ALT 222, ALKP 233) w/o any intrahepatic or extrahepatic biliary ductal dilatation or choledocholithiasis on MRCP, IOC without contrast within the intra or extrahepatic ducts and was interpreted as a nondiagnostic intraoperative cholangiogram. At this point, some pain but lfts improving. Will trend lfts, if they don't normalize, to consider ercp on tuesday. Pt agrees with plan. History of Present Illness Reason for Consultation: s/p lap stan, elevated LFTs Requesting Physician: Tara Attending Physician: Elen Pacheco MD History of Present Illness 49 year old female with history of asthma, anxiety/depression, dyslipidemia, hypothyroidism and others below admitted through the ED on 06/28/24 with acute cholecystitis POD #1 lap CCY - GI was asked to evaluate for elevated LFTs. Pt was seen and evaluated, chart reviewed. Notes her presenting symptoms are largely improved. She endorses some surgical site tenderness but no longer having severe pain. No nausea, vomiting. Tolerated a liquid diet this AM. No fever, chills, CP, SOB. WBC 10 Tbili 1.2 --> 1.2 AST 352 --> 137 ALT 336 --> 222 ALKP 222 --> 233 Lipase 25 IOC 06/28/24: No contrast within the intra or extrahepatic ducts. This suggests a nondiagnostic intraoperative cholangiogram. MRCP 06/28/24: The gallbladder is distended and contains numerous gallstones. The gallbladder wall is significantly thickened and edematous, with mild pericholecystic inflammation. Findings are consistent with acute cholecystitis. There is no intra or extrahepatic biliary ductal dilatation. The common bile duct measures up to 5 mm in diameter. There are no intraluminal filling defects to suggest choledocholithiasis. The pancreatic duct is normal in caliber. ABD US 06/28/24: Cholelithiasis. Thickened gallbladder wall could relate to chronic liver disease or acute cholecystitis. Upper limits of normal common bile duct measuring 0.6 cm. Hepatomegaly with fatty infiltration of the liver. There is trace free fluid surrounding the liver which is nonspecific. Allergies Allergy/AdvReac Type Severity Reaction Status Date / Time No Known Allergies Allergy Unknown Verified 06/27/24 20:10 Home Medications Medication Instructions Recorded Confirmed Type levonorgestrel 21 mcg/24 hr (up to 1 device intrauterine CONTINOUS 04/08/23 06/27/24 History 8 years) 52 mg intrauterine device (Mirena) bupropion HCl 150 mg 24 hr tablet, 150 mg PO QAM #90 tabs 04/20/23 06/27/24 Rx extended release (Wellbutrin XL) valacyclovir 500 mg tablet 500 mg PO BID PRN ud 06/08/23 06/27/24 History (Valtrex) levothyroxine 150 mcg tablet 150 mcg PO QAM 01/05/24 06/27/24 History citalopram 40 mg tablet 40 mg PO QAM 90 days #90 tabs 04/19/24 06/27/24 Rx albuterol sulfate 90 mcg/actuation 2 puff inhalation QID PRN 06/27/24 06/27/24 History aerosol inhaler Shortness Of Breath Or Wheezing Patient History Medical History Obesity BMI 37.8 History of COVID-19 2020- fatigue, body aches, nausea; resolved Surgical History History of arthroscopy of knee Left knee arthroscopy (05/20/22): LMA#5 igel with good seal, easy, atra[place] [facility] [place] Tubal ligation status 2011 H/O oral surgery delivery delivered Family History Mother Ovarian cancer Other No family history of adverse response to anesthesia Denies family history of Colon cancer Breast cancer Social History Smoking Status: Current every day smoker Tobacco Type: Cigarettes Cigarettes Per Day: 4; Second Hand Exposure: No; Do You Dip or Chew Tobacco: No; Tobacco Cessation Education Requested by Patient: Yes Hx Alcohol Use: Yes Alcohol type: hard liquor Hx Substance Use: No Preferred Language: Armenian Communication Ability: Effective Hearing Ability: Normal Inspection Supervisor Required: No Beliefs That Will Affect Care: None marital status: Current Living Situation: Spouse current occupational status: employed current occupation: Homemaker Other Information That Helps Us Care for You: No Feels Safe at Home: Yes Safety Concerns: Feels Safe At This Time Childhood Exposure to Second-Hand Smoke: Yes Diet: regular caffeine: Yes Dental Care, Regularly: Yes Physical Activity Frequency: Daily Seatbelt Use: always Sunscreen Use: Yes Assistive Devices: None Review of Systems Review of Systems: All other findings negative except as noted in HPI. Physical Exam Constitutional: WD/WN, vitals as above Respiratory: normal respiratory effort, lungs clear to auscultation Cardiovascular: RRR, no murmur, no edema Gastrointestinal (Abdomen): normal bowel sounds, soft, nontender, no hepatosplenomegaly Skin: no rashes, warm and dry Results & Data Vital Signs (Past 12 Hours) Vital Signs Temp Pulse Resp BP BP Pulse Ox O2 Del Method 06/29/24 07:20 36.8 C 69 16 147/72 H 96 Room Air 06/29/24 02:58 37.1 C 66 16 147/76 H 97 Room Air 06/28/24 23:00 36.6 C 64 14 150/72 H 95 Room Air Laboratory Results 06/29/24 Range/Units 06:54 WBC 10.59 (4.8-10.8) K/ul RBC 3.63 L (4.20-5.40) M/uL Hgb 11.0 L (12.0-16.0) g/dl Hct 32.5 L (37.0-47.0) % MCV 89.5 (80.0-100.0) fL MCH 30.3 (25.0-34.0) pg MCHC 33.8 (32.0-36.0) g/dL RDW Std Deviation 42.1 (36.4-46.3) fL RDW Coeff of April 12.7 (11.5-14.5) % Plt Count 166 (130-400) K/uL MPV 10.9 (9.4-12.4) fL Immature Gran % (Auto) 0.5 % Neut % (Auto) 85.8 % Lymph % (Auto) 8.2 % Cedar % (Auto) 5.2 % Eos % (Auto) 0.1 % Baso % (Auto) 0.2 % Neut # (Auto) 9.09 H (1.40-6.50) K/uL Lymph # (Auto) 0.87 L (1.20-3.40) K/uL Cedar # (Auto) 0.55 (0.11-0.59) K/uL Eos # (Auto) 0.01 (0.00-0.50) K/uL Baso # (Auto) 0.02 (0.00-0.20) K/uL Immature Gran # (Auto) 0.05 (0.01-0.20) K/uL Sodium 140 (136-145) mmol/L Potassium 3.6 (3.5-5.1) mmol/L Chloride 108 H (98-107) mmol/L Carbon Dioxide 27 (21-32) mmol/L Anion Gap 5 (3-11) BUN 6 (6-23) mg/dl Creatinine 0.61 (0.6-1.2) mg/dl Est Cr Clr Drug Dosing 123.2 ml/min Est GFR ( Amer) 125.1 ml/min Est GFR (Non-Af Amer) 108.0 ml/min BUN/Creatinine Ratio 9.8 L (10-20) Glucose 116 H (70-99(Fasting)) mg/dl Calcium 8.3 L (8.6-10.3) mg/dl Total Bilirubin 1.2 H (0.2-1.0) mg/dl AST 137 H (13-39) U/L ALT 222 H (7-52) U/L Alkaline Phosphatase 233 H (34-104) U/L Total Protein 6.1 (6.0-8.3) gm/dl Albumin 3.5 (3.4-5.0) gm/dl Globulin 2.6 (2.5-4.0) gm/dl Albumin/Globulin Ratio 1.3 (0.9-2) PG Care Time/CCT Total # of Minutes Spent Total Time Spent with Patient: Total time spent is greater than 50% in coordination of care (as documented) at patient's floor/unit and/or counseling patient: Coding Level of Care Code 36287 IN/OBS CONSULT LVL 3,45M Diagnoses S/P laparoscopic cholecystectomy Z90.49
--- NOTE | 2024-06-29 11:53 | Hospitalist Progress Note ---
Date of Service June 29, 2024 Assessment & Plan (1) Acute cholecystitis: Plan: s/p laparoscopic cholecystectomy, pain is better, LFTs are trending down, diet as tolerated monitor LFTs (2) Dyslipidemia: Plan: hold statins (3) Asthma: Plan: continue home meds (4) Hypothyroidism: Plan: continue Synthroid (5) Anxiety: Plan Patient is a 49-year-old female with past medical history of hyperlipidemia, asthma, anxiety with depression, and hypothyroidism who is admitted due to likely acute cholecystitis and surgical intervention for cholecystectomy. RUQ pain // Cholecystitis? - Patient with RUQ pain w/ associated nausea and feverish; no fevers at the time of admission - Labs with possible subjective leukocytosis and neutrophilia; LFTs only remarkable for elevated alk phos at 120 - Gallbladder US not yet formally read at the time of evaluation, but marked tenderness on palpation of RUQ and what looks to me like gallstones and thickened gallbladder mathew in US is suggestive of acute cholecystitis - Will admit patient to Med/Surg - General Surgery with tentative plan for cholecystectomy tomorrow - Will add Zosyn for antibiotic coverage - IVF with D5/NSS as patient is hypoglycemic (asymptomatic) and to remain NPO for her procedure - Pain control with Tylenol 1000 mg (mild), Toradol 15 mg IV (moderate), or Dilaudid 0.25 mg (severe) 06/28 LFTs are trending up, MRCP report is pending , surgery input appreciated, continue antibiotics 06/29 s/p cholecystectomy, diet as tolerated , GI input appreciated, no procedure today , monitor LFTs Asymptomatic UTI - Patient with U/A showing signs of UTI; U/Cx pending - Patient is asymptomatic, nevertheless, Zosyn should also cover UTI Asthma - No current symptoms - Continue prn albuterol Hypothyroidism - Continue home levothyroxine HLD - Continue home meds Anxiety w/ depression - Continue home meds Dispo: Med/Surg Fluids: LR @ 125 cc/hr Diet: NPO due to procedure tomorrow Pain Control:Tylenol for mild pain, Toradol for moderate pain, Dilaudid 0.25 mg for severe pain VTE ppx: SCD; no chemoprophylaxis due to procedure tomorrow Code Status: Full Admission and Anticipated Discharge Date Admission Date: June 27, 2024 Subjective pt reports expected post operative discomfort no n/v tolerating clears Review of Systems Review of Systems: All systems reviewed & are unremarkable except as noted in Subjective Physical Exam Physical Exam: head atraumatic neck supple chest CTA b/l heart S1S2 regular abdomen right upper quadrant tender extremities no edema neuro AAO times 3 Results & Data Results & Data Vital Signs (Past 12 Hours) Vital Signs Temp Pulse Resp BP BP Pulse Ox O2 Del Method 06/29/24 07:20 36.8 C 69 16 147/72 H 96 Room Air 06/29/24 02:58 37.1 C 66 16 147/76 H 97 Room Air PG Care Time/CCT Total # of Minutes Spent Total Time Spent with Patient: Total time spent is greater than 50% in coordination of care (as documented) at patient's floor/unit and/or counseling patient: Coding Level of Care Code 95243 SUB INP/OBS CARE 2/35MIN Diagnoses Acute cholecystitis K81.0 Dyslipidemia E78.5 Asthma J45.909 Hypothyroidism E03.9 Anxiety F41.9
[2024-06-30 07:13] LABS: Basophils # (auto) 0.04 K/uL (0.00-0.20); Basophils % (auto) 0.5 %; Eosinophils # (auto) 0.51 K/uL (0.00-0.50); Eosinophils % (auto) 6.8 %; Hemoglobin 10.2 g/dl (12.0-16.0); Immature Granulocytes # (auto) 0.02 K/uL (0.01-0.20); Immature Granulocytes % (auto) 0.3 %; Lymphocytes % (auto) 17.3 %; Mean Corpuscular Hemoglobin 30.4 pg (25.0-34.0); Mean Corpuscular Hgb Conc 32.9 g/dL (32.0-36.0); Mean Corpuscular Volume 92.3 fL (80.0-100.0); Mean Platelet Volume 10.6 fL (9.4-12.4); Monocytes # (auto) 0.52 K/uL (0.11-0.59); Monocytes % (auto) 6.9 %; Neutrophils # (auto) 5.12 K/uL (1.40-6.50); Neutrophils % (auto) 68.2 %; Platelet Count 162 K/uL (130-400); Red Blood Count 3.36 M/uL (4.20-5.40); White Blood Count 7.51 K/ul (4.8-10.8)
[2024-06-30 08:12] LABS: Albumin Globulin Ratio 1.2 (0.9-2); Albumin Level 3.2 gm/dl (3.4-5.0); BUN Creatinine Ratio 6.3 (10-20); Bilirubin,Total 0.8 mg/dl (0.2-1.0); Calcium 7.9 mg/dl (8.6-10.3); Creatinine Clr Calc Pharmacy 119.3 ml/min; Est GFR (African American) 123.8 ml/min; Est GFR (Non-African American) 106.8 ml/min; Globulin 2.6 gm/dl (2.5-4.0); Potassium 3.1 mmol/L (3.5-5.1); Total Protein 5.8 gm/dl (6.0-8.3)
[2024-06-30] MEDS: POTASSIUM CHLORIDE CRTAB 20 MEQ TABCR PO STA (09:59)
[2024-06-30] MEDS: ONDANSETRON INJ 2 MG/ML 2 ML VIAL IV PRN (10:00)
--- NOTE | 2024-06-30 10:44 | Surgery Progress Note ---
Date of Service June 30, 2024 Assessment & Plan (1) S/P laparoscopic cholecystectomy: (2) Elevated liver enzymes: Plan POD #2 status post lap stan. Doing well. LFTs trending down. Advance diet to regular Encourage ambulation Still high ABEBE output, leave for now continue to track LFTs Possible discharge to home tomorrow Admission and Anticipated Discharge Date Admission Date: June 27, 2024 Subjective Feeling better. No nausea or vomiting. Tolerating clears. Minimal pain. Physical Exam Physical Exam: AFVSS NAD, A&O x 3 NCAT Abdomen: Soft, mild TTP in RUQ Incisions C/D/I; Dermabond in place ABEBE drain with serous drainage Results & Data Vital Signs (Past 12 Hours) Vital Signs Temp Pulse Resp BP Pulse Ox O2 Del Method 06/30/24 07:25 36.9 C 69 16 145/81 H 92 Room Air Laboratory Results 06/30/24 Range/Units 06:35 WBC 7.51 (4.8-10.8) K/ul RBC 3.36 L (4.20-5.40) M/uL Hgb 10.2 L (12.0-16.0) g/dl Hct 31.0 L (37.0-47.0) % MCV 92.3 (80.0-100.0) fL MCH 30.4 (25.0-34.0) pg MCHC 32.9 (32.0-36.0) g/dL RDW Std Deviation 44.0 (36.4-46.3) fL RDW Coeff of April 13.0 (11.5-14.5) % Plt Count 162 (130-400) K/uL MPV 10.6 (9.4-12.4) fL Immature Gran % (Auto) 0.3 % Neut % (Auto) 68.2 % Lymph % (Auto) 17.3 % Dupage % (Auto) 6.9 % Eos % (Auto) 6.8 % Baso % (Auto) 0.5 % Neut # (Auto) 5.12 (1.40-6.50) K/uL Lymph # (Auto) 1.30 (1.20-3.40) K/uL Dupage # (Auto) 0.52 (0.11-0.59) K/uL Eos # (Auto) 0.51 H (0.00-0.50) K/uL Baso # (Auto) 0.04 (0.00-0.20) K/uL Immature Gran # (Auto) 0.02 (0.01-0.20) K/uL Sodium 138 (136-145) mmol/L Potassium 3.1 L (3.5-5.1) mmol/L Chloride 107 (98-107) mmol/L Carbon Dioxide 26 (21-32) mmol/L Anion Gap 5 (3-11) BUN 4 L (6-23) mg/dl Creatinine 0.63 (0.6-1.2) mg/dl Est Cr Clr Drug Dosing 119.3 ml/min Est GFR ( Amer) 123.8 ml/min Est GFR (Non-Af Amer) 106.8 ml/min BUN/Creatinine Ratio 6.3 L (10-20) Glucose 101 H (70-99(Fasting)) mg/dl Calcium 7.9 L (8.6-10.3) mg/dl Total Bilirubin 0.8 (0.2-1.0) mg/dl AST 72 H (13-39) U/L ALT 153 H (7-52) U/L Alkaline Phosphatase 212 H (34-104) U/L Total Protein 5.8 L (6.0-8.3) gm/dl Albumin 3.2 L (3.4-5.0) gm/dl Globulin 2.6 (2.5-4.0) gm/dl Albumin/Globulin Ratio 1.2 (0.9-2)
--- NOTE | 2024-06-30 10:54 | Gastroenterology Progress Note ---
Date of Service June 30, 2024 Assessment & Plan (1) S/P laparoscopic cholecystectomy: Plan: Clinically improving less drainage from ABEBE drain less abdominal pain await advancement of diet as per surgery (2) Elevated liver enzymes: Plan: Liver enzymes normalizing significantly improved today from yesterday we will continue to monitor liver enzymes. Suspect related to post cholecystectomy in flammation. No need for ERCP at this time. Admission and Anticipated Discharge Date Admission Date: June 27, 2024 Subjective Clinically improving less abdominal pain denies any shortness of breath or chest pain Review of Systems Review of Systems: No fever No chills No SOB No CP mild Abd pain Physical Exam Physical Exam: Eyes; anicteric HENT No masses Chest clear to A Cor S1, S2 physiologic Abd: softer nontender no masses Ext no edema Results & Data Results & Data Vital Signs (Past 12 Hours) Vital Signs Temp Pulse Resp BP Pulse Ox O2 Del Method 06/30/24 07:25 36.9 C 69 16 145/81 H 92 Room Air Laboratory Results AST 72 ALT 153 ALP 212 total bilirubin 0.8 PG Care Time/CCT Total # of Minutes Spent Total Time Spent with Patient: Total time spent is greater than 50% in coordination of care (as documented) at patient's floor/unit and/or counseling patient: Coding Level of Care Code 98633 SUB INP/OBS CARE 3/50MIN Diagnoses S/P laparoscopic cholecystectomy Z90.49 Elevated liver enzymes R74.8
--- NOTE | 2024-06-30 16:09 | Hospitalist Progress Note ---
Date of Service June 30, 2024 Assessment & Plan (1) Acute cholecystitis: Plan: s/p laparoscopic cholecystectomy, pain is better, LFTs are trending down, diet as tolerated LFTs trending down Surgery advanced diet (2) Dyslipidemia: Plan: hold statins (3) Asthma: Plan: continue home meds (4) Hypothyroidism: Plan: continue Synthroid (5) Anxiety: (6) UTI (urinary tract infection): Plan: Urine culture growing E. coli, pansensitive Currently on Zosyn. Will switch to p.o. antibiotic upon discharge Admission and Anticipated Discharge Date Admission Date: June 30, 2024 Subjective Patient feels well overall. Denies chest pain or shortness of breath. Abdominal pain improving. Review of Systems Review of Systems: All systems reviewed & are unremarkable except as noted in Subjective Physical Exam Physical Exam: General: Awake, conversant Heart: S1, S2/regular rate and rhythm, no murmur rubs or gallops Lungs: Clear to auscultation bilaterally. Normal effort Abdomen: Soft/nondistended. Diffuse mild tenderness to palpation, no rebound or rigidity. No hepatosplenomegaly Extremities: No clubbing/cyanosis. No edema Behavior: Appropriate, cooperative Results & Data Results & Data Vital Signs (Past 12 Hours) Vital Signs Temp Pulse Resp BP Pulse Ox O2 Del Method 06/30/24 15:17 37.1 C 63 16 142/88 H 95 Room Air 06/30/24 07:25 36.9 C 69 16 145/81 H 92 Room Air Laboratory Results Abnormal lab results 06/30/24 Range/Units 06:35 RBC 3.36 L (4.20-5.40) M/uL Hgb 10.2 L (12.0-16.0) g/dl Hct 31.0 L (37.0-47.0) % Eos # (Auto) 0.51 H (0.00-0.50) K/uL Potassium 3.1 L (3.5-5.1) mmol/L BUN 4 L (6-23) mg/dl BUN/Creatinine Ratio 6.3 L (10-20) Glucose 101 H (70-99(Fasting)) mg/dl Calcium 7.9 L (8.6-10.3) mg/dl AST 72 H (13-39) U/L ALT 153 H (7-52) U/L Alkaline Phosphatase 212 H (34-104) U/L Total Protein 5.8 L (6.0-8.3) gm/dl Albumin 3.2 L (3.4-5.0) gm/dl PG Care Time/CCT Total # of Minutes Spent Total Time Spent with Patient: Total time spent is greater than 50% in coordination of care (as documented) at patient's floor/unit and/or counseling patient: Coding Level of Care Code 16473 SUB INP/OBS CARE 2MIN Diagnoses Acute cholecystitis K81.0 Dyslipidemia E78.5 Asthma J45.909 Hypothyroidism E03.9 Anxiety F41.9 UTI (urinary tract infection) N30.00 Hematuria presence: without hematuria Urinary tract infection type: acute cystitis (6) UTI (urinary tract infection) Hematuria presence: without hematuria Urinary tract infection type: acute cystitis Qualified Code(s): N30.00 - Acute cystitis without hematuria
[2024-06-30] MEDS: MoRPHine SULFATE 2 MG/ML CARP IV PRN (16:49)
[2024-06-30 21:01] VITALS: O2SAT 96
--- NOTE | 2024-07-01 02:05 | Surgery Progress Note ---
Date of Service July 01, 2024 Assessment & Plan (1) S/P laparoscopic cholecystectomy: (2) Elevated liver enzymes: Plan POD #3 status post lap stan. Doing well. LFTs trending down. continue regular diet regular Encourage ambulation Remove ABEBE in the morning may discharge to home from surgical standpoint Admission and Anticipated Discharge Date Admission Date: June 30, 2024 Subjective feeling better. No vomiting. Minimal pain. Tolerating diet. Physical Exam Physical Exam: AFVSS NAD, A&O x 3 NCAT Abdomen: Soft, mild TTP in RUQ Incisions C/D/I; Dermabond in place ABEBE drain with serous drainage Results & Data Vital Signs (Past 12 Hours) Vital Signs Temp Pulse Resp BP Pulse Ox O2 Del Method 06/30/24 20:17 36.9 C 64 18 129/75 96 Room Air 06/30/24 15:17 37.1 C 63 16 142/88 H 95 Room Air
[2024-07-01 07:44] VITALS: BP 150/89; PULSE 63; RESP 16; TEMP 98.1
[2024-07-01 07:51] LABS: Alanine Aminotransferase 111 U/L (7-52); Albumin Globulin Ratio 1.1 (0.9-2); Alkaline Phosphatase 198 U/L (34-104); Anion Gap 6 (3-11); BUN Creatinine Ratio 6.3 (10-20); Bilirubin,Total 0.5 mg/dl (0.2-1.0); Blood Urea Nitrogen 4 mg/dl (6-23); Carbon Dioxide 25 mmol/L (21-32); Chloride 107 mmol/L (98-107); Creatinine Clr Calc Pharmacy 117.4 ml/min; Est GFR (African American) 123.2 ml/min; Est GFR (Non-African American) 106.3 ml/min; Globulin 2.7 gm/dl (2.5-4.0); Glucose 82 mg/dl (70-99(Fasting)); Sodium 138 mmol/L (136-145); Total Protein 5.7 gm/dl (6.0-8.3)
[2024-07-01 08:52] LABS: Potassium 3.1 mmol/L (3.5-5.1)
--- NOTE | 2024-07-01 09:18 | Gastroenterology Progress Note ---
Date of Service July 01, 2024 Assessment & Plan (1) S/P laparoscopic cholecystectomy: Plan: Progressing well postop ABEBE drain removed (2) Elevated liver enzymes: Plan: Liver enzymes continue to improve and normalize Plan Continue to advance diet as tolerated possible discharge as per surgery today Admission and Anticipated Discharge Date Admission Date: June 30, 2024 Subjective Denies shortness of breath chest pain less abdominal pain Physical Exam Physical Exam: No acute distress afebrile Respiratory rate regular Cardiac rhythm regular Abdomen soft nontender Results & Data Results & Data Vital Signs (Past 12 Hours) Vital Signs Temp Pulse Resp BP Pulse Ox O2 Del Method 07/01/24 07:42 36.7 C 63 16 150/89 H 96 Room Air Laboratory Results Liver enzymes normalizing PG Care Time/CCT Total # of Minutes Spent Total Time Spent with Patient: Total time spent is greater than 50% in coordination of care (as documented) at patient's floor/unit and/or counseling patient: Coding Level of Care Code 74974 SUB INP/OBS CARE 2/35MIN Diagnoses S/P laparoscopic cholecystectomy Z90.49 Elevated liver enzymes R74.8
--- NOTE | 2024-07-01 10:27 | Discharge Summary ---
Date of Service July 01, 2024 Admission HPI Per Admitting Provider Patient is a 49-year-old female with past medical history of hyperlipidemia, asthma, anxiety with depression, and hypothyroidism who came to the emergency department due to abdominal pain. Patient states that her pain began really yesterday and it was more localized to the right upper quadrant and radiating down to her epigastric region and right flank. Describes the pain as sharp and stabbing and that is not relieved by position changes or by using Tylenol, Aleve, or Advil. Pain related to meals, however patient states that she has decreased her food intake and has only had a handful of chips today at 3 PM. Patient also refers that she has been feeling nauseous without vomiting and has no episodes of quantified fevers but has been feeling feverish today. Denies chest pain, shortness of breath, chills, weakness, lightheadedness, syncope, or any other symptom. ED Course: Given a 1 L normal saline bolus, single dose of Toradol 15 mg IV, Zofran 4 mg IV x 1, morphine 4 mg x 2, and single dose of Zosyn. ED physician spoke to general surgery (Dr. Bekah Vila) who stated that they would take patient to the OR for cholecystectomy tomorrow. Labs/Imaging: CBC with possible significant leukocytosis as patient's usual WBC count is 7, neutrophilia, no anemia. CMP with electrolytes within reference range, creatinine 0.74, hyperglycemia with blood sugar of 63. LFTs with liver enzymes within normal limits and elevated alk phos of 120. Lipase of 25. Negative test. UA with positive nitrites and 4+ bacteria. Liver ultrasound but will not read. Medical History: [Reviewed] Medications: [Reviewed] Surgical History: [Reviewed] Family history: [Reviewed] Allergies: [Reviewed] Social History: [Reviewed] Admission Exam Per Admitting Provider GENERAL: Awake alert oriented, afebrile, no acute distress CARDIO: rrr, NO R/M/G PULMONARY: CTA b/l, normal respiratory effort, no respiratory distress GI: Soft, nondistended, marked tenderness to palpation of right upper quadrant and epigastric region, no suprapubic tenderness, no CVA tenderness bilaterally EXTREMITIES: no swelling or calf tenderness in b/l LE SKIN: no rashes Principal Diagnosis Acute cholecystitis status post laparoscopic cholecystectomy UTI Discharge Exam General: Awake, conversant Heart: S1, S2/regular rate and rhythm, no murmur rubs or gallops Lungs: Clear to auscultation bilaterally. Normal effort Abdomen: Soft/nondistended. Diffuse mild tenderness to palpation, no rebound or rigidity. No hepatosplenomegaly Extremities: No clubbing/cyanosis. No edema Behavior: Appropriate, cooperative Discharge Data Allergies Allergy/AdvReac Type Severity Reaction Status Date / Time No Known Allergies Allergy Unknown Verified 06/27/24 20:10 Consultations 06/27/24 21:43 ED Decision to Admit Stat 06/27/24 23:34 Consult General Surgery Routine 06/29/24 09:35 Consult Gastroenterology Routine Procedures Performed Operation Date: 06/28/24 10:25 Actual Procedures p Laparoscopic Cholecystectomy, Intraoperative Cholangiogram - Peggy Vila DO Ordered Studies 06/27/24 19:16 US gallbladder Stat 06/28/24 08:40 MR MRCP Stat 06/28/24 15:05 [place] cholangiogram OR Routine Hospital Course (1) Acute cholecystitis: s/p laparoscopic cholecystectomy, pain is better, LFTs are trending down, diet as tolerated LFTs trending down On regular diet GI and surgery has cleared the patient for discharge (2) Dyslipidemia: Resume statins on discharge (3) Asthma: continue home meds (4) Hypothyroidism: continue Synthroid (5) Anxiety: (6) UTI (urinary tract infection): Urine culture growing E. coli, pansensitive Was on IV Zosyn Discharged on p.o. Keflex Plan Discharge to home today Total Time Total Time Spent Total Time Spent (In Minutes): 35 Discharge Plan Discharge Items Patient Disposition: Home - Self-Care Reason For Visit: ABDOMINAL PAIN Discharge Diagnosis: laparoscopic cholecystectomy Condition on Discharge: Fair Activity: Resume your previous activity Lifting: No more than 25 pounds Bathing Comment: you can shower 06/30/24 , no soaking in pools or baths for 2 weeks Non-emergency contact: Surgeon Call non-emergency contact if: you have any medication questions, your temperature is above 101.5, your wound has increased redness, your wound has increased drainage and your wound pain has increased Follow-up/Referrals: Peggy Lopez DO [Physician] - (call office in for follow up in 2 weeks ) Shayy Cabrera MD [Primary Care Provider] - Diet: Regular Addtl Attending Provider Instructions: You may remove your outer surgical dressing on 06/30. You will have small white bandages on underneath that are over your incision. You may shower with these on. They will tend to fall off on their own in a 7-10 days. Do not shower if you have a surgical drain. You may sponge bath until it is removed. Advised to follow-up with PCP in 1 week. Pending Studies at Discharge: Yes Studies:: surgical pathology Stand-Alone Forms: [facility], Work/School Release Medications and DC Order Prescriptions: New cephalexin 500 mg capsule 500 mg PO BID 3 Days Qty: 6 0RF Continued bupropion HCl [Wellbutrin XL] 150 mg tablet extended release 24 hr 150 mg PO QAM Qty: 90 2RF Rx Instructions: PER EXT MED HX--LAST FILLED 07/23/23 FOR 90 TABS/90 DAYS. citalopram 40 mg tablet 40 mg PO QAM 90 Days Qty: 90 2RF Mirena 21 mcg/24 hours (8 yrs) 52 mg intrauterine device 1 device intrauterine CONTINOUS valacyclovir [Valtrex] 500 mg tablet 500 mg PO BID PRN (Reason: ud) levothyroxine 150 mcg tablet 150 mcg PO QAM albuterol sulfate 90 mcg/actuation Hfa Aerosol Inhaler 2 puff INHALATION QID PRN (Reason: Shortness Of Breath Or Wheezing) Discharge Orders: Discharge Order (Routine); Ordered 07/01/24 Ordered By: Shin Willard Admission Data Admit Date/Time: 06/30/24 13:14 Attending Provider: Shin Willard Admit Provider: Krystina Doe Primary Care Provider: Shayy Cabrera Other Providers: Alvin Hartmann; Peggy Lopez; Faustino Saldaña; Howard Almonte; Mandy Cali; Beatris Priest; Charity Charles; Nirmala Rice; Effie Hill; Satya Cervantes; Stefanie Padilla; Jarrett Son; Ely Gamble; Najma Yoder; Bebe Walker; Olga Fontaine; Mary Rogers; Selene Ramirez; Eduardo Cullen; Bhavin Rivas; Rochelle Pandya; Timi Francisco Jr; Abdirizak King; Enrique Gambino; Jonathan Chun; Travis Cobian; Oxana Michael; Anuj Hawkins I Other Interventions: Discharge Summary Assessment (RN) Last Done: 07/01/24 10:33
== END 2024-07-01 11:56 | disposition home or self-care (01) ==
LOC: ED 18:53 → 3N 18:53 → SUATTDRO 22:18 → 3N 23:05